=== PATIENT | female | born 1965 | race African-American/Black ===

== ENCOUNTER 2016-04-12 17:09 | Emergency (ER) | payer BC, OTHER ==
[~2016-04-12] VITALS: Ht 175.3 cm; Wt 113.4 kg
[~2016-04-12 17:09] MED LIST: CALCIUM 500 +1 EAC5 PO; FIRST-PROGESTE100 MG VG; ZOFRAN ODT4 MG PO; [UNRECOGNIZED DRUG - OTHER]
[2016-04-12] MEDS ORDERED: TESSALON PERLE100 MG PO (18:38)
[2016-04-12] MEDS ORDERED: VENTOLIN HFA 1818 GM INH (18:38)
[2016-04-12] MEDS ORDERED: AZITHROMYCIN 2250 MG PO (18:38)
[2016-04-12] MEDS ORDERED: PREDNISONE 20 M20 MG PO (18:38)
[2016-04-12 20:45] VITALS: BP 144/68
== END 2016-04-12 20:50 | disposition home or self-care (01) ==
LOC: ER 17:09
DX: J18.9 Pneumonia, unspecified organism (principal); I10 Essential (primary) hypertension; E11.8 Type 2 diabetes mellitus with unspecified complications; Z79.4 Long term (current) use of insulin; Z98.890 Other specified postprocedural states; Z90.49 Acquired absence of other specified parts of digestive tract; Z98.84 Bariatric surgery status

== ENCOUNTER → 2016-04-19 | Outpatient (CLI) | payer BC, OTHER ==
[~2016-04-19] MED LIST changes: +AZITHROMYCIN 2250 MG PO; +PREDNISONE 20 M20 MG PO; +TESSALON PERLE100 MG PO; +VENTOLIN HFA 1818 GM INH
== END ==
LOC: RAD 09:15
DX: R09.89 Other specified symptoms and signs involving the circulatory and respiratory systems (principal); R05 Cough

== ENCOUNTER → 2016-09-09 | Outpatient (CLI) | payer BC, OTHER ==
[~2016-09-09] VITALS: Ht 172.7 cm; Wt 124.7 kg
[~2016-09-09] MED LIST changes: +BUTRANS1 EAC2 TD; +CELEBREX100 MG/1 C PO
--- NOTE | ~2016-09-09 | HPC ---
[facility] [place] [address] PAIN MANAGEMENT CONSULTATION Name: NAYANA BOWIE Room #: REG [facility] MEulalia.#: [id number] Admission: 09/09/16 Attend Phys: Neal Sanchez DO Discharge: Date of : 69 Report #: [id number] THIS REPORT FOR: //name// CC: Anita Sanchez SUBJECTIVBE: The patient is a 51-year-old female seen in consultation at the request of Anita Chicas (PATO) for assistance with management of acute and chronic pain concerns. The patient notes that she developed low back pain in 2010 without antecedent trauma and overuse. She had a series of epidural injections, billed in [facility], complicated with a post-dural puncture leak, did physical therapy, had another single epidural injection in 2014 at [facility]. She reports really no relief with those injections. Did see media promoter who diagnosed osteoarthritis in her knees. She has been treated with hydrocodone 10/325 "1-2 every 4-6 hours" for some time (this is off and on since 2011). The patient notes ongoing pain, it is an 8 or 9 on a 0-10 visual analog scale along with her chronic back pain. She states for the past year, she has had pain in her elbows and knees that has interfered with function as well. 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 The patient denies bowel or bladder continence changes. Denies specific weakness, though she notes that she does feel generally that her functional status is impacted by pain. She describes constant, throbbing, sharp, stabbing pain that she rates anywhere from 8-9 on a 0-10 visual analog scale, exacerbated with moving, only gets relief when she is "sedentary." REVIEW OF SYSTEMS: Complete review of systems was attached to the chart and gone over with the patient. SOCIAL HISTORY AND PAST MEDICAL HISTORY: She is , does not smoke, drink alcohol to excess. She has 2 children, 5-year-old son and 12-year-old daughter. Works as noted above. She has been off work up to 3 months. I believe this was in 2009, when she had gastric bypass surgery. She weighed up to 420 pounds. She has lost 150 pounds, weight is about 272 pounds presently. History of asthma for which she uses metered dose inhaler. Subsequent to the gastric bypass surgery, she has not required medications for diabetes or hypertension. Has had some colon issues and significant joint issues. Pain impact score is quite high, averaging 64 out 70. PHYSICAL EXAMINATION: VITAL SIGNS: She is a 5-foot 8-inch, 272-pound female, BMI is 41.8 kilograms per meter squared. Blood pressure is 128/84, pulse 70, respirations 16. NEUROLOGIC: Cranial nerves 2-12 are grossly intact. [address] [address] PAIN MANAGEMENT CONSULTATION Name: NAYANA BOWIE Room #: REG EZIO Mendes#: [id number] Admission: 09/09/16 Attend Phys: Neal Sanchez DO Discharge: Date of : 69 Report #: [id number] HEENT: Pupils are equal and reactive to light and accommodation. Extraocular muscles are intact. Thyroid is modestly enlarged. NECK: Cervical range of motion is full, though she notes flexion and extension exacerbate axial back pain. MUSCULOSKELETAL: Upper extremity strength is generally preserved, 4/5 deltoid, biceps, triceps strength. Hand grasp is symmetric though she notes the pain in her shoulders and elbows with range of motion. HEART: Regular rhythmical without murmur. LUNGS: Clear to auscultation. ABDOMEN: Endomorphic, gynecoid build. MUSCULOSKELETAL: Rises from chair using armrest. Gait is modestly antalgic though she can walk on her toes and heels individually, and lumbar flexion is good at 90 degrees. Has some diffuse tenderness in the low back, typically around the SI areas. Lower extremity strength is symmetric to all muscle groups tested. Hip flexion, lower extremity extension and flexion, dorsiflexion and plantar flexion 4/5. Patellar and Achilles reflexes are diminished, but symmetric, 0-1/4. Passive rotation of the hips exacerbates pain. She has significant decreased range of motion in general with poor flexibility. ERUM test is modestly positive on the right. Straight leg raise is negative. DIAGNOSTIC STUDIES: Reviewed including x-rays of the lumbar spine from 10/09/2015, noting mild scoliosis in the lumbar spine again. This is not significant, have to appreciate on physical exam or palpation. MRI of the lumbar spine from 10/30/2015, notes mild central protrusion at L3-L4. Chronic degenerative changes L4-L5 with loss of disk height and spondylosis, chronic degenerative changes L5-S1, posterior osteophyte spurring and disk bulging. Degenerative changes of the lumbar apophyseal joint, most marked at L5-S1. ASSESSMENT: Axial back pain, lumbar spondylosis, degenerative joint disease affecting multi-joints, osteoarthritis of the shoulders, elbows, hips and knees requiring complex medication management. RECOMMENDATION: Long discussion with the patient today about therapeutic options. We discussed at length concerns for chronic use of short-acting opiates for non-malignant chronic pain concerns. The patient is currently taking 40-60 mEq of morphine a day with pain that she still rates in general 8 range, that is interfering with her function. We did talk about using a long-acting opiate to avoid the "peaks and troughs" of short acting agents. To this in, we have elected to enter into an opiate [id number] contract. We will start the patient on Butrans patch, buprenorphine as she has problems with systemic absorption of agents, status post GI surgery. I also think given her significant osteoarthritic issues, a nonsteroidal anti-inflammatory medication will be efficacious. Status post bariatric surgery but the only anti-inflammatory typically indicated as a glynn-1 selective agent. We will start Celebrex 100 mg 1 a day. We will see the patient back in 4 weeks to evaluate [address] [address] PAIN MANAGEMENT CONSULTATION Name: NAYANA BOWIE MARIE Room #: REG Marichuy Chaudhari.#: [id number] Admission: 09/09/16 Attend Phys: Neal Sanchez DO Discharge: Date of : 69 Report #: [id number] efficacy of medication changes. We may need to titrate . Of note, the patient states she has been on Cymbalta up to 60 mg a day and gabapentin "for a long time" though the dose is uncertain; neither gave her much relief. Thank you for allowing me to participate in the patient's care. I stressed that we will try and find a combination of agents that will make her a little more functional, but in no way, shape, or form will we be able to make her "pain free." Strongly recommend to continue physical activity, range of motion, ongoing dietary discretion and weight reduction. I will keep you abreast of her progress. By: [id number] Neal Sanchez, DO /nt
[2016-09-09 13:18] VITALS: BP 128/84
== END ==
LOC: PAIN 06:55
DX: M54.5 Low back pain (principal); M47.816 Spondylosis without myelopathy or radiculopathy, lumbar region; M16.0 Bilateral primary osteoarthritis of hip; M17.0 Bilateral primary osteoarthritis of knee; M19.012 Primary osteoarthritis, left shoulder; M19.011 Primary osteoarthritis, right shoulder; M19.022 Primary osteoarthritis, left elbow; M19.021 Primary osteoarthritis, right elbow; J45.909 Unspecified asthma, uncomplicated; E11.9 Type 2 diabetes mellitus without complications; I10 Essential (primary) hypertension; K63.89 Other specified diseases of intestine; D64.89 Other specified anemias; F32.9 Major depressive disorder, single episode, unspecified; Z90.49 Acquired absence of other specified parts of digestive tract; Z98.84 Bariatric surgery status

== ENCOUNTER → 2016-10-03 | Outpatient (CLI) | payer BC, OTHER ==
[~2016-10-03] VITALS: Ht 172.7 cm; Wt 128.6 kg
[~2016-10-03] MED LIST changes: +FENTANYL PA12 MCG/HR TD
[2016-10-03 15:03] VITALS: BP 155/70
== END | disposition home or self-care (01) ==
LOC: PAIN 06:54
DX: M17.0 Bilateral primary osteoarthritis of knee (principal); M19.042 Primary osteoarthritis, left hand; M19.041 Primary osteoarthritis, right hand; M41.86 Other forms of scoliosis, lumbar region; E66.01 Morbid (severe) obesity due to excess calories; Z68.41 Body mass index [BMI] 40.0-44.9, adult; Z98.84 Bariatric surgery status; M47.896 Other spondylosis, lumbar region

== ENCOUNTER → 2016-10-17 | Outpatient (CLI) | payer BC, OTHER ==
[~2016-10-17] VITALS: Ht 172.7 cm; Wt 124.4 kg
--- NOTE | ~2016-10-17 | HPC ---
[facility] [place] [address] [place] [address] PAIN MANAGEMENT CONSULTATION Name: NAYANA BOWIE Room #: REG [facility] Cinthya#: [id number] Admission: 10/17/16 Attend Phys: Neal Sanchez DO Discharge: Date of : 67 Report #: [id number] THIS REPORT FOR: //name// CC: Anita Sanchez HISTORY OF PRESENT ILLNESS: The patient is a 51-year-old female. She was prior seen in the pain clinic on 10/03/2016. She is being seen for high risk complex medication management, DJD affecting bilateral knees and hands, lumbar scoliosis and spondylosis, degenerative changes in the lumbar spine. She is morbidly obese with a BMI of greater than 43 kilograms per meter squared. She is status post bypass surgery in 2009 (prior weight was 420 pounds). Last visit, we discontinued Butrans due to topical rash. I trialed fentanyl at 12 mcg. The patient returns to pain clinic today. She notes that the Duragesic is helpful, she has less sedation than with the Butrans. Skin is not getting irritated either like it was with the Butrans either. She still notes pain is 9/10. Still complaining of some swelling despite our discontinuation of Celebrex. PHYSICAL EXAMINATION: Shows 51-year-old female. Vital signs are generally stable. BMI is 41.7. She rises from chair using armrest. She has diffuse tenderness in the back, arms and legs, but no discrete trigger points are noted. She does not use tobacco products. We reviewed the fact that opiate medications are being used to provide analgesia adequate to support activities of daily living, not attempting to achieve a specific pain score on the 0-10 Visual Analog Scale. The current opiate medications are providing sufficient analgesia to allow the patient to participate in activities of daily living. The patient is not exhibiting any aberrant behavior suggestive of drug diversion. The patient is not having any adverse reactions to medications. The patient is not suffering from daytime somnolence or mental acuity changes. The patient is managing opiate-induced constipation with appropriate pola-cnk-bwpkjvu agents and dietary considerations. The patient was counseled on concern for caution with operating a motor vehicle while using opiate medications. A physical exam was performed and the patient's functional status was evaluated. All patients with back pain were advised against the bed rest greater than 4 days and were advised to return to normal activities. Pain score assessment was noted and the treatment plan was reviewed with the patient. All current medications, both prescribed and OTC were reviewed and reconciled on the electronic medical record. Tobacco screening was accomplished and smoking cessation was advised when indicated. BMI was noted and diet/exercise modification was recommended for all patients following outside normal parameters. I reviewed with the patient today their responsibilities to safeguard prescription medications, reviewed their responsibility to utilize medications [address] [address] PAIN MANAGEMENT CONSULTATION Name: NAYANA BOWIE MARIE Room #: REG [facility] Cinthya#: [id number] Admission: 10/17/16 Attend Phys: Neal Sanchez DO Discharge: Date of : 69 Report #: [id number] only as prescribed by the physician. They are to seek and receive pain medications only from 1 physician group ([facility]). They are to use 1 pharmacy and keep the clinic informed if they change pharmacies. Their responsibilities include making followup visits in a timely fashion and to avoid abrupt discontinuation of medication usage. Their responsibilities further include bringing their medications (bottles from the pharmacy with residual pills) to the visit for possible confirmation of pill counts and the patient understands it is their responsibility to submit to random drug screens to ensure both that the medications prescribed are present, and that no other controlled substances are present. All prescriptions provided today were generated electronically. ASSESSMENT: 1. Chronic pain syndrome, high risk complex medication management. 2. Degenerative joint disease affecting bilateral knees and hands. 3. Lumbar scoliosis and spondylosis. 4. Degenerative changes of the lumbar spine. 5. Morbid obesity. RECOMMENDATION: We will increase Duragesic to 25 mcg q. 72 hours, taking the liberty of writing for 30 days of current medications. We will reevaluate at that time. Hopefully, we can start back on Celebrex at that time as well. Discharged in good and stable condition. By: [id number] Neal Sanchez DO /nt
[2016-10-17 08:31] VITALS: BP 135/69
== END | disposition home or self-care (01) ==
LOC: PAIN 07:41
DX: M47.816 Spondylosis without myelopathy or radiculopathy, lumbar region (principal); M17.0 Bilateral primary osteoarthritis of knee; M19.042 Primary osteoarthritis, left hand; M19.041 Primary osteoarthritis, right hand; E66.01 Morbid (severe) obesity due to excess calories; Z68.41 Body mass index [BMI] 40.0-44.9, adult; G89.4 Chronic pain syndrome; M41.86 Other forms of scoliosis, lumbar region

== ENCOUNTER → 2016-11-04 | Outpatient (CLI) | payer BC, OTHER ==
[~2016-11-04] VITALS: Ht 172.7 cm; Wt 121.7 kg
[~2016-11-04] MED LIST changes: +DURAGESIC25 MCG/HR TP
--- NOTE | ~2016-11-04 | HPC ---
[facility] [place] [address] [address] [place] [address] PAIN MANAGEMENT CONSULTATION Name: JAMIRNAYANA SALAZAR Room #: REG Marichuy Mendes#: [id number] Admission: 11/04/16 Attend Phys: Neal Sanchez DO Discharge: Date of : 69 Report #: [id number] THIS REPORT FOR: //name// CC: Anita Sanchez The patient is a very pleasant 51-year-old female, prior seen in the pain clinic on 10/17/2016. The patient has ongoing pain concerns, DJD affecting bilateral knees and hands, lumbar scoliosis and spondylosis, DJD of lumbar spine. She is morbidly obese with a BMI of 43 kilograms per meter squared. She is status post bariatric surgery in 2009 (prior weight was 420 pounds). Initially, we had trialed the Butrans patch, but this caused topical rash. We trialed a fentanyl patch at 12 mcg with only nominal efficacy. It did afford less sedation and less pruritus than the Butrans patch. Last visit on 10/17/2016 increased that patch to 25 mcg. She has now utilized that for good 2 weeks. She returns to the pain clinic today for evaluation. On discussion with the patient today, she notes while pain is reasonably well controlled, noting pain is 4 on VAS, constant aching sensation, exacerbated with movement, primarily in the bilateral shoulders, elbow, neck, low back and knees, she feels the last day or two, she has had some cognitive impairment secondary to what she believes is the Duragesic patch. Again, it is curious she used a 12 mcg patch for 2 weeks with no efficacy. This is now about 2 weeks on the 25 mcg patch in the last 24-36 hours, she has felt a little bit "off balance." Feeling "crazy in the head." The patient had some nausea and swelling. PHYSICAL EXAMINATION: Relatively unchanged. A 51-year-old female, BMI is 40.8 kg/m2. Vital signs are stable. Cranial nerves 2-12 are grossly intact. Extraocular muscles are intact. I detect no nystagmus or lateral gaze deviation. Balance is good. Gait is tandem, though mildly antalgic gait. Discussion with the patient today about therapeutic options. While I have not seen this clinically, she may be exhibiting a side effect from the fentanyl, while it is a drug with rapid onset and rapid onset of clinical effect, the drug itself is actually fairly long in its metabolic half life. It clinically is rapidly uptaken by fat deposits outside the general circulation. I am curious if perhaps she simply has reached saturation of uptake of the extra ____ sites, maybe exhibiting some relative overdose at this point. Assuming this may be the reason for the effect we are seeing, we have elected to drop back to 12 mcg of Duragesic patch for 5 cycle, i.e., 15 days. If this keeps the patient relatively more oriented, lucid and while still affording some efficacy from analgesia, I have taken the liberty of writing for a second prescription to be released in 2 weeks for 12 mcg of Duragesic patches. If, however, she finds that rotating back to 12 mcg patch has loss of efficacy from analgesia, I will have her go back to 25 mcg patch in 2 weeks. We will somewhat "rechallenge" and see if she does better. This may simply be a concurrent viral "bug." [facility] [address] [place] [address] PAIN MANAGEMENT CONSULTATION Name: NAYANA BOWIE #: REG EZIO Mendes#: [id number] Admission: 11/04/16 Attend Phys: Neal Sanchez DO Discharge: Date of : 69 Report #: [id number] The patient was discharged in good and stable condition today. Again, prescription for 12 mcg of Duragesic patch for 5 cycle and then we will either go to 12 mcg or 25 mcg for the subsequent 4 weeks. I am happy to see her any time in the next 6 weeks if she has any untoward symptoms, otherwise we will see her back in 6 weeks for reevaluation. Discharged in good and stable condition. By: [id number] Neal Sanchez DO /nt
[2016-11-04 10:24] VITALS: BP 132/61
== END ==
LOC: PAIN 07:16
DX: M17.0 Bilateral primary osteoarthritis of knee (principal); M19.042 Primary osteoarthritis, left hand; M19.041 Primary osteoarthritis, right hand; M47.896 Other spondylosis, lumbar region

== ENCOUNTER → 2017-01-02 | Outpatient (CLI) | payer BC, OTHER ==
[~2017-01-02] VITALS: Ht 172.7 cm; Wt 115.8 kg
[~2017-01-02] MED LIST changes: +HYSINGLA ER20 MG PO
--- NOTE | ~2017-01-02 | HPC ---
[facility] [place] [address] PAIN MANAGEMENT CONSULTATION Name: NAYANA BOWIE Room #: REG [facility] ParrishKhurram#: [id number] Admission: 01/02/17 Attend Phys: Neal Sanchez DO Discharge: Date of : 69 Report #: [id number] THIS REPORT FOR: //name// CC: Anita Sanchez HISTORY OF PRESENT ILLNESS: The patient is a very pleasant 51-year-old female, prior seen in the pain clinic on 11/04/2016. The patient has significant DJD affecting her hands and feet, has lumbar scoliosis and spondylosis. She has chronic pain concerns. She has taken high dose hydrocodone for many years, is off medication since about 2011. She was seen by me in consultation on August 2016. We elected to start the patient on a long acting opiate, Butrans worked well, but caused skin reaction. We rotated to fentanyl, which caused some cognitive impairment. She returns to pain clinic today. She has been out the fentanyl for about 3 days. She notes pain remains problematic. She rates her pain 8 on a VAS. Complains of pain primarily in her shoulders, elbows, neck, low back, knees and hands. PHYSICAL EXAMINATION: Unchanged, pleasant 51-year-old female, moderately obese with a BMI of 38.8 kilograms per meter squared. Vital signs are stable. Rises from chair using armrest. Gait is nominally antalgic. She has tenderness about the knees, though no ballotable edema is appreciable. Tenderness in her ankles, hands, elbows and shoulders with range of motion. Strength is adequate. ASSESSMENT: Chronic pain syndrome requiring high risk complex medication management. Primary pain generator is arthritis affecting hands, feet, elbows and back. The patient has been diagnosed with osteoarthritis. RECOMMENDATION: Long discussion with the patient today about therapeutic options. Ultimately, we have elected to continue with a long-acting opiate, we will trial Hysingla 20 mg 1 a day. I have taken the liberty of writing for 30 tablets. We will follow up in 1 month for reevaluation. We may need to titrate this up slightly at next visit. I stressed with the patient that we will not make her "pain-free," but we are trying to find a dose that will help enable her to be little more functional. The patient was discharged in good and stable condition. Follow up in 4 weeks for reevaluation. We reviewed the fact that opiate medications are being used to provide analgesia adequate to support activities of daily living, not attempting to achieve a specific pain score on the 0-10 Visual Analog Scale. The current opiate medications are providing sufficient analgesia to allow the patient to participate in activities of daily living. The patient is not exhibiting any aberrant behavior suggestive of drug diversion. The patient is not having any [address] [address] PAIN MANAGEMENT CONSULTATION Name: NAYANA BOWIE Room #: REG EZIO Mendes#: [id number] Admission: 01/02/17 Attend Phys: Neal Sanchez DO Discharge: Date of : 69 Report #: [id number] adverse reactions to medications. The patient is not suffering from daytime somnolence or mental acuity changes. The patient is managing opiate-induced constipation with appropriate uutm-kld-kdgmfqj agents and dietary considerations. The patient was counseled on concern for caution with operating a motor vehicle while using opiate medications. A physical exam was performed and the patient's functional status was evaluated. All patients with back pain were advised against the bed rest greater than 4 days and were advised to return to normal activities. Pain score assessment was noted and the treatment plan was reviewed with the patient. All current medications, both prescribed and OTC were reviewed and reconciled on the electronic medical record. Tobacco screening was accomplished and smoking cessation was advised when indicated. BMI was noted and diet/exercise modification was recommended for all patients following outside normal parameters. I reviewed with the patient today their responsibilities to safeguard prescription medications, reviewed their responsibility to utilize medications only as prescribed by the physician. They are to seek and receive pain medications only from 1 physician group ( [facility]). They are to use 1 pharmacy and keep the clinic informed if they change pharmacies. Their responsibilities include making followup visits in a timely fashion and to avoid abrupt discontinuation of medication usage. Their responsibilities further include bringing their medications (bottles from the pharmacy with residual pills) to the visit for possible confirmation of pill counts and the patient understands it is their responsibility to submit to random drug screens to ensure both that the medications prescribed are present, and that no other controlled substances are present. All prescriptions provided today were generated electronically. <ELECTRONICALLY SIGNED> By: Neal Sanchez DO 01/02/17 1527 [id number] Neal Sanchez DO /nt
[2017-01-02 10:46] VITALS: BP 122/69
== END | disposition home or self-care (01) ==
LOC: PAIN 07:05
DX: Z76.0 Encounter for issue of repeat prescription (principal); G89.4 Chronic pain syndrome; M19.90 Unspecified osteoarthritis, unspecified site; E66.01 Morbid (severe) obesity due to excess calories; Z79.891 Long term (current) use of opiate analgesic; Z68.38 Body mass index [BMI] 38.0-38.9, adult

== ENCOUNTER → 2017-03-10 | Outpatient (CLI) | payer BC, OTHER ==
[~2017-03-10] VITALS: Ht 172.7 cm; Wt 112.4 kg
[~2017-03-10] MED LIST changes: +HYSINGLA ER30 MG PO; +IBUPROFEN 200200 M1 PO; +MORPHABOND ER15 MG PO; +ZANAFLEX4 MG PO
--- NOTE | ~2017-03-10 | HPC ---
[facility] [place] [address] PAIN MANAGEMENT CONSULTATION Name: NAYANA BOWIE Room #: [facility] [id number] Admission: 03/10/17 Attend Phys: Neal Sanchez DO Discharge: Date of : 69 Report #: [id number] THIS REPORT FOR: //name// CC: Anita Sanchez HISTORY OF PRESENT ILLNESS: The patient is a 51-year-old female being treated for symptomatic chronic pain syndrome, axial back pain, osteoarthritis affecting hands and knees, history of lumbar scoliosis and spondylosis, requiring high risk complex medication management. Last seen in the pain clinic on 02/07/2017. At that time, I had taken the patient off of short acting hydrocodone 10/325 one to two tablets hours q. 4 hours and we started Butrans, which causes skin irritation. We tried Duragesic, but even at low dose 12 mcg caused cognitive impairment. I started the patient on Hysingla 20 mg with end of dose failure, we increased to 30 mg with ongoing end of dose failure. Returns to pain clinic today complaining of multiple pain generators, hands, shoulders, back and knees. Rates her pain at 8 on a VAS. PHYSICAL EXAMINATION: Unchanged. Pleasant 51-year-old female, BMI 37.7 kilograms per meter squared. Vital signs stable as noted in the EMR. Rises from chair using armrest. Gait is tandem. Diffuse tenderness across the low back. Lower extremity strength is symmetric. ASSESSMENT: Osteoarthritis affecting hands and knees, axial back pain, chronic pain syndrome requiring high risk complex medication management, component of lumbar spondylosis, no focal defects noted. RECOMMENDATIONS: I had a long discussion with the patient today about therapeutic option. I pointed out that we will never achieve pain cessation, we are simply trying to diminish pain to keep the patient functional. Ultimately, we elected to rotate MorphaBond extended release 15 mg b.i.d. The patient was given a coupon from the MorphaBond paediatrician to keep copay reasonable. We will use no breakthrough agent, but continue tizanidine 4 mg p.r.n. Follow up in 30 days to evaluate efficacy of this intervention. I am loathe to increase her opiate load overall. <ELECTRONICALLY SIGNED> By: Neal Sanchez DO 03/12/17 0808 [id number] Neal Sanchez DO /nt
[2017-03-10 12:37] VITALS: BP 143/71
== END ==
LOC: PAIN 07:12
DX: M17.0 Bilateral primary osteoarthritis of knee (principal); M19.042 Primary osteoarthritis, left hand; M19.041 Primary osteoarthritis, right hand; M47.896 Other spondylosis, lumbar region; G89.4 Chronic pain syndrome; Z79.899 Other long term (current) drug therapy

== ENCOUNTER → 2017-03-31 | Outpatient (CLI) | payer OTHER ==
[~2017-03-31] VITALS: Ht 167.6 cm; Wt 114.8 kg
[~2017-03-31] MED LIST changes: +MOBIC7.5 MG PO; +NORCO 10-325 T1 EAC1 PO; +NORCO 10-325 T1 EACH PO
--- NOTE | ~2017-03-31 | HPC ---
[facility] [place] [address] PAIN MANAGEMENT CONSULTATION Name: BOWIENAYANA Room #: REG EZIO Mendes#: [id number] Admission: 03/31/17 Attend Phys: Neal Sanchez DO Discharge: Date of : 69 Report #: [id number] THIS REPORT FOR: //name// CC: Anita Sanchez DATE OF SERVICE: 03/31/2017 HISTORY OF PRESENT ILLNESS: The patient is a 52-year-old female being treated for osteoarthritis affecting knees and hands, component of axial back pain, high risk complex medication management for chronic pain syndrome. Last seen in pain clinic 03/10/2017. The patient came to me, taking hydrocodone 10/325 one tablet every 4 hours, high dose opiates with dwindling efficacy. She rotated to Butrans patch which caused skin irritation, rotated to Duragesic which caused cognitive dysfunction, Hysingla both 20 and 30 mg extended release had end of dose failure. Last visit, we tried Morphabond 15 mg b.i.d. The patient claims that this caused GI distress. Returns to pain clinic today. Having ongoing pain. She rates an 8.5 on a VAS, pain in shoulders and elbows and neck. She has followed up with Rheumatology. They noted that she has osteoarthritis and really no therapeutic disease modifying agents were appropriate. The patient has had a gastric bypass surgery; hence, anti-inflammatory medications can be a little problematic, though meloxicam 7.5 b.i.d. should be okay. She does take a rare tkbh-pho-kznenuc ibuprofen. We suggest we try the more Cespedes selective analgesic as noted above. PHYSICAL EXAMINATION: Otherwise shows a 52-year-old female, BMI is 40.9 kilograms per meter squared. Blood pressure is modestly elevated at 131/62, pulse 66, respirations 16. Alert and oriented to person, place and time, judged to be a reasonable historian. Rises from chair using the armrest. Gait is modestly antalgic. Subjective pain in all of her joints, but overall strength is adequate. We reviewed the fact that opiate medications are being used to provide analgesia adequate to support activities of daily living, not attempting to achieve a specific pain score on the 0-10 Visual Analog Scale. The current opiate medications are providing sufficient analgesia to allow the patient to participate in activities of daily living. The patient is not exhibiting any aberrant behavior suggestive of drug diversion. The patient is not having any adverse reactions to medications. The patient is not suffering from daytime somnolence or mental acuity changes. The patient is managing opiate-induced constipation with appropriate cqxs-nzw-yacrdnz agents and dietary considerations. The patient was counseled on concern for caution with operating a motor vehicle while using opiate medications. [address] [address] PAIN MANAGEMENT CONSULTATION Name: NAYANA BOWIE Room #: REG CLI Cinthya#: [id number] Admission: 03/31/17 Attend Phys: Neal Sanchez DO Discharge: Date of : 69 Report #: [id number] A physical exam was performed and the patient's functional status was evaluated. All patients with back pain were advised against the bed rest greater than 4 days and were advised to return to normal activities. Pain score assessment was noted and the treatment plan was reviewed with the patient. All current medications, both prescribed and OTC were reviewed and reconciled on the electronic medical record. Tobacco screening was accomplished and smoking cessation was advised when indicated. BMI was noted and diet/exercise modification was recommended for all patients following outside normal parameters. I reviewed with the patient today their responsibilities to safeguard prescription medications, reviewed their responsibility to utilize medications only as prescribed by the physician. They are to seek and receive pain medications only from 1 physician group ( [facility]). They are to use 1 pharmacy and keep the clinic informed if they change pharmacies. Their responsibilities include making followup visits in a timely fashion and to avoid abrupt discontinuation of medication usage. Their responsibilities further include bringing their medications (bottles from the pharmacy with residual pills) to the visit for possible confirmation of pill counts and the patient understands it is their responsibility to submit to random drug screens to ensure both that the medications prescribed are present, and that no other controlled substances are present. All prescriptions provided today were generated electronically. ASSESSMENT: Osteoarthritis affecting hands and knees, axial back pain, chronic pain syndrome requiring high risk complex medication management. The patient has failed multiple opiate analgesics. RECOMMENDATIONS: I had a long discussion with the patient today about therapeutic options. The patient was seen from approximately 10:38-11:05, greater than 50% of the 25-minute visit was spent counseling the patient. Ultimately, I pointed out that the patient has failed long acting opiates. I pointed out that it is unsustainable to continue short-acting opiates for chronic arthritic pain. Again, recommend the aforementioned meloxicam 7.5 b.i.d. I have taken the liberty of writing for short course of hydrocodone 10/325, limit 45 tablets. I told the patient she can take 1 or 2 a day on a nondaily basis. We would like to see her back in about 4 weeks for a pill count and we will evaluate efficacy and try and find the lowest effective dose to keep the patient functional while stressing that we are not trying to achieve "pain score of 0," simply to keep the patient functional. Discharged in a stable [address] [place] [address] PAIN MANAGEMENT CONSULTATION Name: NAYANA BOWIE Room #: REG EZIO Mendes#: [id number] Admission: 03/31/17 Attend Phys: Neal Sanchez DO Discharge: Date of : 69 Report #: [id number] condition after moderately prolonged visit, 25 plus minute visit was spent counseling the patient. <ELECTRONICALLY SIGNED> By: Neal Sanchez DO 04/02/17 0721 1213 15 Neal Sanchez DO /nt
[2017-03-31 10:35] VITALS: BP 131/62
== END ==
LOC: PAIN 06:52
DX: G89.4 Chronic pain syndrome (principal); M54.9 Dorsalgia, unspecified; M17.0 Bilateral primary osteoarthritis of knee; M19.042 Primary osteoarthritis, left hand; M19.041 Primary osteoarthritis, right hand; Z79.899 Other long term (current) drug therapy

== ENCOUNTER → 2017-08-14 | Outpatient (CLI) | payer OTHER ==
[~2017-08-14] VITALS: Ht 172.7 cm; Wt 118.9 kg
[~2017-08-14] MED LIST changes: -NORCO 10-325 T1 EAC1 PO
--- NOTE | ~2017-08-14 | HPC ---
[facility] [address] [place] [address] PAIN MANAGEMENT CONSULTATION Name: BOWIENAYANA Room #: REG EZIO Mendes#: [id number] Admission: 08/14/17 Attend Phys: Neal Sanchez DO Discharge: Date of : 69 Report #: [id number] THIS REPORT FOR: //name// CC: Anita Sanchez The patient is a very pleasant 52-year-old female, seen for osteoarthritis affecting hands and knees, axial back pain requiring complex medication management. She is actually last seen back in March (03/31/2017). She came to us with ongoing chronic pain requiring complex medication management. She had escalated to taking hydrocodone 10 mg multiple times a day. We had a long discussion about appropriate use of therapeutic agents. Concerned for opiate tolerance and habituation. Ultimately, we tried rotating to long acting opiates, Butrans patch unfortunately caused cutaneous irritation, Hysingla at both 20 and 30 mg doses had end of dose failure. Morphabond 15 mg b.i.d. caused GI distress. At last visit, we ultimately elected to continue hydrocodone 10/325 on a nondaily basis, the patient was given 45 tablets, which has lasted her now nearly 4+ months. She is on appropriate nondaily basis. She is status post gastric bypass surgery in 2009. Suggested she use Meloxicam 7.5 0-2 a day for inflammation component. He returns to pain clinic today. She notes she is getting some gastric distress, though it turns out she is using the Meloxicam, perhaps 1 tablet every other day, but is using ibuprofen 200 mg 1-2 tablets a day up to 6 days a week. I suggested this may be the more likely culprit for her gastroesophageal reflux concerns (than the meloxicam). She does note primary pain in her elbows, right greater than left and low back, right greater than left. PHYSICAL EXAMINATION: Shows a pleasant 52-year-old female, BMI remains elevated at 39.9 kilograms per meter squared. Blood pressure shows modest systolic hypertension at 149/72, pulse 78, respirations 16. She is alert and oriented to person, place and time, judged to be a reasonable historian. Rises from chair using armrest. Gait is tandem. Has some diffuse tenderness in the right low back about the L4-L5 area. Pain is exacerbated with right rotation more so than left. She has tenderness in the right elbow with full extension, though really does not show any tenderness over the medial or lateral epicondyle. Hand grasp is symmetric. I cannot reproduce right elbow pain with palpation, appears to be more "deep" in the elbow joint proper. ASSESSMENT: Osteoarthritis affecting hands and knees, axial back pain requiring complex medication management. RECOMMENDATIONS: Discussed with the patient today about therapeutic option. We suggest some range of motion exercises, yoga and/or magalis chi. I will renew [address] [address] PAIN MANAGEMENT CONSULTATION Name: NAYANA BOWIE Room #: REG EZIO Mendes#: [id number] Admission: 08/14/17 Attend Phys: Neal Sanchez DO Discharge: Date of : 69 Report #: [id number] hydrocodone 10, limit 60 tablets to be used on a nondaily basis. Meloxicam 7.5 mg up to b.i.d. Follow up on a p.r.n. basis. <ELECTRONICALLY SIGNED> By: Neal Sanchez DO 08/15/17 0656 0836 1002 Neal Sanchez DO /nt
[2017-08-14 08:11] VITALS: BP 149/72
== END ==
LOC: PAIN 07:00 → RAD 07:00 → PAIN 09:31
DX: Z12.31 Encounter for screening mammogram for malignant neoplasm of breast (principal); M17.0 Bilateral primary osteoarthritis of knee; M19.042 Primary osteoarthritis, left hand; M19.041 Primary osteoarthritis, right hand; Z79.899 Other long term (current) drug therapy

== ENCOUNTER → 2017-09-15 | Outpatient (CLI) | payer OTHER ==
[~2017-09-15] VITALS: Ht 172.7 cm; Wt 115.7 kg
[~2017-09-15] MED LIST changes: +NORCO 10-325 T1 EAC1 PO
--- NOTE | ~2017-09-15 | HPC ---
[facility] [address] [address] PAIN MANAGEMENT CONSULTATION Name: JAMIRNAYANA SALAZAR Room #: REG EZIO Mendes#: [id number] Admission: 09/15/17 Attend Phys: Neal Sanchez DO Discharge: Date of : 69 Report #: [id number] THIS REPORT FOR: //name// CC: Anita Sanchez The patient is a 52-year-old female originally seen in consultation about a year ago, 09/09/2016. She has ongoing acute and chronic back pain. She had prior had epidural injections complicated with a dural puncture leak. These were done at [facility]. She had no long going relief with the axial and radicular component of pain. She does have osteoarthritis affecting her knees. She had been on hydrocodone 10/325 one to two tablets q. 4-6 hours for quite some time, though she had been off since about 2011. She was taking p.r.n. hydrocodone when I saw her. She is . She does not smoke. She does not drink alcohol to excess. She has 2 children, a 6-year-old son and a 13-year-old daughter. She had gastric bypass surgery, had weight up to 420 pounds, current weight is 255. Since the bypass surgery, she has not required medications for diabetes or hypertension. She has been stable on baseline medication, we had trialled and failed multiple agents including Butrans, which caused cutaneous irritation; Hysingla, both at 20 and 30 mg doses had end of dose failure; Morphabond 15 mg b.i.d. caused GI distress. Ultimately hydrocodone 10/325, limiting 45-50 tablets for 60 days has been helpful. She does do well with meloxicam 7.5 b.i.d. This has not been a problem with her gastric bypass surgery. The patient returns to pain clinic today and notes subjective pain score is 8 on a VAS. BMI is 38.8 kilograms per meter squared (5 feet 8 inches, 255 pounds). Blood pressure shows modest hypertension 139/85, pulse 60, respirations are 14. She is alert and oriented to person, place and time, judged to be a reasonable historian. She has not fallen since her last visit. Rises from chair using armrest. Gait is tandem. Complains of axial low back pain, though no radicular component, some knee pain due to osteoarthritis. Opiate consent to treat contract was signed on 09/09/2016. Opiate risk assessment score is low , functional impact however, is fairly high of 56/70. We reviewed the fact that opiate medications are being used to provide analgesia adequate to support activities of daily living, not attempting to achieve a specific pain score on the 0-10 Visual Analog Scale. The current opiate medications are providing sufficient analgesia to allow the patient to participate in activities of daily living. The patient is not exhibiting any aberrant behavior suggestive of drug diversion. The patient is not having any adverse reactions to medications. The patient is not suffering from daytime somnolence or mental acuity changes. The patient is managing opiate-induced constipation with appropriate kkhg-vqi-ibsncgw agents and dietary [address] [address] PAIN MANAGEMENT CONSULTATION Name: NAYANA BOWIE Room #: REG Marichuy Mendes#: [id number] Admission: 09/15/17 Attend Phys: Neal Sanchez DO Discharge: Date of : 69 Report #: [id number] considerations. The patient was counseled on concern for caution with operating a motor vehicle while using opiate medications. A physical exam was performed and the patient's functional status was evaluated. All patients with back pain were advised against the bed rest greater than 4 days and were advised to return to normal activities. Pain score assessment was noted and the treatment plan was reviewed with the patient. All current medications, both prescribed and OTC were reviewed and reconciled on the electronic medical record. Tobacco screening was accomplished and smoking cessation was advised when indicated. BMI was noted and diet/exercise modification was recommended for all patients following outside normal parameters. I reviewed with the patient today their responsibilities to safeguard prescription medications, reviewed their responsibility to utilize medications only as prescribed by the physician. They are to seek and receive pain medications only from 1 physician group ( [facility]). They are to use 1 pharmacy and keep the clinic informed if they change pharmacies. Their responsibilities include making followup visits in a timely fashion and to avoid abrupt discontinuation of medication usage. Their responsibilities further include bringing their medications (bottles from the pharmacy with residual pills) to the visit for possible confirmation of pill counts and the patient understands it is their responsibility to submit to random drug screens to ensure both that the medications prescribed are present, and that no other controlled substances are present. All prescriptions provided today were generated electronically. ASSESSMENT: Chronic axial back pain and osteoarthritis affecting hands, knees and elbows, requiring complex medication management. RECOMMENDATIONS: We will renew hydrocodone 10/325 one tablet b.i.d., limit 50 tablets. I have taken the liberty of writing for 2 prescriptions, one release today and one release in 4 weeks. We will add tizanidine 4 mg half to one tablet 3 times a day, dispense 75 tablets, 1 refill as needed for spasm, 7.5 b.i.d. I have taken the liberty of writing for 90-day prescription of the latter medication. The patient was discharged in good and stable condition. We will have her follow up with one of my [facility]. She is on an exquisitely low dose of opiate, taking not more than 20 mg equivalent morphine a day, typically little bit less than this. I did incidentally note that it has been about a year that she has been seen in the clinic. There is no random drug screen on the chart. We may consider getting a buccal swab at next visit. Certainly, no aberrant behavior [address] [address] PAIN MANAGEMENT CONSULTATION Name: JAMIRNAYANAE Room #: REG [facility] Cinthya#: [id number] Admission: 09/15/17 Attend Phys: Neal Sanchez DO Discharge: Date of : 69 Report #: [id number] suggestive of drug diversion, simply complying with her opiate consent to treat contract. <ELECTRONICALLY SIGNED> By: Neal Sanchez DO 09/15/17 1346 0931 1127 Neal Sanchez DO /nt
[2017-09-15 08:33] VITALS: BP 139/85
== END ==
LOC: PAIN 06:35
DX: M19.042 Primary osteoarthritis, left hand (principal); M19.041 Primary osteoarthritis, right hand; M54.5 Low back pain; M17.0 Bilateral primary osteoarthritis of knee; M19.122 Post-traumatic osteoarthritis, left elbow; M19.121 Post-traumatic osteoarthritis, right elbow; Z79.899 Other long term (current) drug therapy

== ENCOUNTER → 2017-11-12 | Outpatient (CLI) | payer OTHER ==
[~2017-11-12] VITALS: Ht 172.7 cm; Wt 115.7 kg
--- NOTE | ~2017-11-12 | HPC ---
[facility] [place] [address] [place] [address] PAIN MANAGEMENT CONSULTATION Name: NAYANA BOWIE Room #: REG JASMYNMarichuy Mendes#: [id number] Admission: 11/12/17 Attend Phys: Sabi Hernández MD Discharge: Date of : 69 Report #: [id number] THIS REPORT FOR: //name// CC: Anita Hernández DATE OF SERVICE: 11/12/2017 FOLLOWUP HISTORY: The patient is a 52-year-old female who has been followed in the Pain Clinic because of chronic pain. She has osteoarthritis, which is affecting her hands and knees. She also has axial back pain requiring complex medication regimen. She has been treated with a complex medical management course of opioids and nonsteroidal medications. The patient finds that her medications are helpful. She remains gainfully employed. As you may recall, she is status post gastric bypass surgery in 2009. Because of her surgery, possibility of a nonsteroidal anti-inflammatory medication has been discussed and the patient will monitor her GI complaints. The patient also has a history of gastroesophageal reflux. ALLERGIES: No known drug allergies. CURRENT MEDICATIONS: Tizanidine 4 mg t.i.d., hydrocodone 10/325 one p.o. b.i.d., meloxicam 7.5 mg b.i.d., history of ibuprofen 200 mg 2 to 3 tablets daily p.r.n. PAST MEDICAL HISTORY: Diabetes, anemia, asthma, hypertension, gallbladder disease, colon problems, joint disease. PAST SURGICAL HISTORY: Tonsillectomy in 1998, ablation in 2014, gastric bypass 420 pounds in 2009, gallbladder, cholecystectomy in 2009, hernia repair in 2010. 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 She is working at this juncture. REVIEW OF SYSTEMS: Fatigue, weakness, headaches, asthma, recurrent headaches, itching, depression, noninsulin dependent diabetes mellitus. LABORATORY DATA: No new laboratory values are available at this time, but L-spine views for dated 10/09/2015 reveals scoliotic curvature of the left. Lumbar vertebrae appear intact and normal alignment. No evidence of fracture or dislocation present. L4-L5 and L5-S1 space height is reduced with endplate irregularity and sclerosis. Degenerative changes of apophyseal joints are present throughout the lumbar spine. PAIN CLINIC ASSESSMENT: 1. History of osteoarthritis: The patient has some generalized problems with [facility] [address] [place] [address] PAIN MANAGEMENT CONSULTATION Name: NAYANA OBWIE MARIE Room #: REG [facility] Cinthya#: [id number] Admission: 11/12/17 Attend Phys: Sabi Hernández MD Discharge: Date of : 69 Report #: [id number] her back as well as with her elbows. 2. The patient states she has not been treated for rheumatoid arthritis. 3. Height 5 feet 8 inches, weight 255 pounds, BMI is 38.8. 4. Vital Signs: Blood pressure 139/85, pulse 62, respiratory rate 14, room air saturation 98%. 5. Pain intensity 10/31. 6. Fall risk. The patient has not fallen. 7. Blood thinner. The patient is not on her blood thinning medication. 8. History of hypertension. The patient is not being treated at this juncture for hypertension. 9. Opioid therapy. The patient is taking her medication as prescribed and gets it from one source, the pain clinic. 10. Risk assessment tool 0/3 for use of opioid medication. 11. Functional assessment 56/70. 12. Recreational drug use. The patient denies use of recreational drugs. 13. Tobacco: The patient has never smoked. 14. Alcohol. The patient rarely drinks alcoholic beverages. PHYSICAL EXAMINATION: GENERAL: The patient is a well-developed, well-nourished black female. Appears her stated age. She is somewhat obese. HEENT: Normocephalic, atraumatic. Extraocular eye muscles intact. Sclerae nonicteric. Mucous membranes are moist. NECK: Without adenopathy or JVD. The patient without bruits. CHEST: Clear to auscultation without rhonchi or rales. HEART: Regular rate. S1, S2. ABDOMEN: Protuberant. MUSCULOSKELETAL: Upper extremity muscle strength is judged to be 5/5 in the major muscle groups. The patient has some soreness in her elbows bilaterally. MUSCULOSKELETAL: Without significant scoliosis, kyphosis or lordosis. The patient has pain and discomfort, which radiates down the lower portion of her back. Muscle strength is judged to be 5/5 for the major muscle groups. IMPRESSION: 1. Past history of diabetes. 2. Asthma. 3. Past history of hypertension. 4. History of colon problems. 5. History of osteoarthritic joint disease. 6. Osteoarthritis affecting both hands, knees. 7. Axial back pain requiring complex medical regimen. RECOMMENDATIONS: We discussed treatment options with the patient. We will continue with her current medical regimen of hydrocodone, tizanidine and the patient will monitor use of her nonsteroidal anti-inflammatory medication, meloxicam. A script for these medications has been rewritten. The patient will [address] [address] PAIN MANAGEMENT CONSULTATION Name: NAYANA BOWIE Room #: CHARLEEN Mendes#: [id number] Admission: 11/12/17 Attend Phys: Sabi Hernández MD Discharge: Date of : 69 Report #: [id number] follow up in the near future. We would like to thank you for letting us participate in her care. We hope she continues to improve. By: [id number] Sabi Hernández MD /lonnie
[2017-11-12 08:26] VITALS: BP 144/74
== END ==
LOC: PAIN 07:29
DX: M17.0 Bilateral primary osteoarthritis of knee (principal); M19.042 Primary osteoarthritis, left hand; M19.041 Primary osteoarthritis, right hand; E11.9 Type 2 diabetes mellitus without complications; I10 Essential (primary) hypertension; J45.909 Unspecified asthma, uncomplicated; M54.5 Low back pain; Z79.899 Other long term (current) drug therapy

== ENCOUNTER → 2018-01-07 | Outpatient (CLI) | payer OTHER ==
[~2018-01-07] VITALS: Ht 172.7 cm; Wt 112.5 kg
--- NOTE | ~2018-01-07 | HPC ---
[facility] [place] [address] PAIN MANAGEMENT CONSULTATION Name: NAYANA BOWIE Room #: REG EZIO Cinthya#: [id number] Admission: 01/07/18 Attend Phys: Sabi Hernández MD Discharge: Date of : 69 Report #: [id number] THIS REPORT FOR: //name// CC: Anita Hernández DATE OF SERVICE: 01/07/2018 FOLLOWUP HISTORY: The patient is a 52-year-old female who has been followed in the Pain Clinic. As you recall, she has a history of osteoarthritis, which affects her hands, knees, back, elbow and feet. She has been treated with complex medical regimen. This includes opioid medications. She finds that these medications continued to be helpful. She remains gainfully employed. As you recall, she is status post gastric bypass surgery in 2009. Because of the surgery, she is unable to take nonsteroidal anti-inflammatory medications. She also has a history of gastroesophageal reflux. She feels that her medications are helpful. She rates her pain as a 7/10. She has had no complications. She is able to think clearly with their use. She is aware that these medications can cause some problems, such as addiction as well as decreased pain relief secondary to tolerance. She would like to have her medications renewed. ALLERGIES: No known drug allergies. CURRENT MEDICATIONS: Tizanidine 4 mg t.i.d., hydrocodone 10/325s one p.o. b.i.d., meloxicam 7.5 mg b.i.d. History of ibuprofen use in the past. PAIN CLINIC ASSESSMENT/PQRS: 1. History of osteoarthritis involving the knees bilaterally, left and right, right foot, back, bilateral elbows which are most problematic. The patient is not being treated for rheumatoid arthritis. 2. Height 5 feet 8 inches, weight 248 pounds, BMI 37.7. 3. Vital signs: Blood pressure 127/68, pulse 67, respiratory rate 16, room air saturation is 100%. 4. Pain intensity: 7/10. 5. Fall risk: The patient has not fallen in the last 3 months. 6. Blood thinner: The patient is not on a blood thinning medication. 7. Hypertension: The patient is not being treated for hypertension. 8. Opioid therapy greater than 6 weeks: The patient receives her opioid medications from one source, the Pain Clinic. 9. Risk assessment tool: Low risk, 0/3 for opioid use. 10. Functional assessment tool: 56/70. 11. Recreational drug use: The patient denies use of recreational drugs. 12. Tobacco: The patient has never smoked. 13. Alcohol: The patient denies, other than rare use of alcoholic beverages. PHYSICAL EXAMINATION: [facility] [address] [place] [address] PAIN MANAGEMENT CONSULTATION Name: BOWIENAYANA DENISE [facility] #: [id number] Admission: 01/07/18 Attend Phys: Sabi Hernández MD Discharge: Date of : 69 Report #: [id number] GENERAL: The patient is a well-developed, well-nourished black female. She appears her stated age. She is alert and oriented x 3. Her affect is appropriate, slightly obese. HEENT: Normocephalic, atraumatic. Extraocular eye muscles intact. Sclerae nonicteric. Mucous membranes are moist. NECK: Without adenopathy or JVD. No bruits. CHEST: Clear to auscultation, without rhonchi or rales. HEART: Regular rate. S1, S2. ABDOMEN: Protuberant. Bowel sounds present. MUSCULOSKELETAL: Without problems in the major muscle groups. Upper extremity muscle strength is judged to be 5/5. The patient complains of some increase in soreness in her elbows bilaterally. Without scoliosis, kyphosis, or lordosis. The patient has some pain and discomfort in the lower portion of her back. She has pain and discomfort in her knees bilaterally. Strength judged to be 5/5 for the major muscle groups in the lower extremity. IMPRESSION: 1. Past history of diabetes. 2. Asthma. 3. History of hypertension. 4. History of colon problems. 5. Osteoarthritis involving numerous joints. 6. Axial back pain, requiring complex medical regimen. RECOMMENDATIONS: We discussed treatment options with the patient. Risks and benefits of the opioid medications were discussed. Possible complications of the procedure were reviewed. She is aware that 26469 people last year as a result of overdosing. The patient states she keeps her medications in a guarded area and feels that these medications enable her to remain gainfully employed. She is not having any confusion or problems with mentation. She would like to have her medications renewed. She will follow up in the future. We would like to thank you for letting us participate in her care. We hope she continues to improve. By: [id number] aSbi Hernández MD /lonnie
[2018-01-07 08:32] VITALS: BP 127/68
== END ==
LOC: PAIN 06:57
DX: M17.0 Bilateral primary osteoarthritis of knee (principal); M19.072 Primary osteoarthritis, left ankle and foot; M19.042 Primary osteoarthritis, left hand; M19.022 Primary osteoarthritis, left elbow; M19.021 Primary osteoarthritis, right elbow; M19.071 Primary osteoarthritis, right ankle and foot; M47.816 Spondylosis without myelopathy or radiculopathy, lumbar region; I10 Essential (primary) hypertension; J45.909 Unspecified asthma, uncomplicated; M19.041 Primary osteoarthritis, right hand; E11.9 Type 2 diabetes mellitus without complications; Z79.899 Other long term (current) drug therapy

== ENCOUNTER → 2018-03-18 | Outpatient (CLI) | payer OTHER ==
[~2018-03-18] VITALS: Ht 172.7 cm; Wt 111.3 kg
--- NOTE | ~2018-03-18 | HPC ---
[facility] [address] PAIN MANAGEMENT CONSULTATION Name: NAYANA BOWIE Room #: REG EZIO Cinthya#: [id number] Admission: 03/18/18 Attend Phys: Sabi Hernández MD Discharge: Date of : 69 Report #: [id number] THIS REPORT FOR: //name// CC: Anita Hernández DATE OF SERVICE: 03/18/2018 CHIEF COMPLAINT: Here for medication renewal. HISTORY: The patient is a 53-year-old female who has been followed in the pain clinic. She has a history of osteoarthritis, which affects her hands, knees, back, elbow and feet. She has been treated with complex medical regimen, which includes opioid medications. Finds that these medications continue to be helpful. She remains gainfully employed. She did have a gastric bypass surgery in 2009 because of the surgery, she is unable to take nonsteroidal anti-inflammatory medications to help mitigate her pain. Does also have a history of gastroesophageal reflux. Finds that her medications continue to be helpful. Rates her pain as a 7/10 at this juncture. She has returned to the pain clinic today for renewal of her medications. She has taken the medication as prescribed. She is aware that addiction and can occur as use of opioid medications. Overall, she would like to continue with her medications, so that she can remain gainfully employed and active. ALLERGIES: No known drug allergies. CURRENT MEDICATIONS: Tizanidine 4 mg t.i.d., hydrocodone 10/325 one p.o. b.i.d., Meloxicam 7.5 mg b.i.d., ibuprofen has been used in the past. PAIN CLINIC ASSESSMENT/PQRS: 1. The patient has osteoarthritis involving her knees bilaterally. Has left and right foot pain, has back pain, bilateral elbows, which are problematic. The patient is not being treated for rheumatoid arthritis. 2. Height 5 feet 8 inches, weight 245 pounds, BMI is 37.3. 3. Vital signs: Blood pressure 131/80, pulse 66, respiratory rate 18, room air saturations 100%. 4. Pain intensity 09/30. 5. Fall risk. The patient has not fallen in the last 3 months. 6. Blood thinner. The patient is not on a blood thinning medication. 7. Hypertension. The patient has not been treated for hypertension. 8. Opioid greater than 6 weeks. The patient receives her medication from one source, the pain clinic. 9. Risk assessment tool, low risk for opioid use. 10. Functional assessment tool 56/70. 11. Recreational drug use. The patient denies use of recreational drugs. 12. Tobacco: The patient has never smoked. [address] [address] PAIN MANAGEMENT CONSULTATION Name: BOWIENAYANA MARIE Room #: REG EZIO Mendes#: [id number] Admission: 03/18/18 Attend Phys: Sabi Hernández MD Discharge: Date of : 69 Report #: [id number] 13. Alcohol: The patient denies use of alcoholic beverages. PHYSICAL EXAMINATION: GENERAL: The patient is a well-developed, well-nourished black female, appears her stated age. She is alert and oriented x3. Affect is appropriate. Speech is fluent. HEENT: Normocephalic, atraumatic. Extraocular eye muscles intact. Sclerae nonicteric. Mucous membranes are moist. NECK: Without adenopathy or JVD. CHEST: Clear to auscultation without rhonchi or rales. HEART: Regular rate. S1, S2. ABDOMEN: Protuberant. Bowel sounds present. MUSCULOSKELETAL: Without significant scoliosis, kyphosis or lordosis. Upper muscle strength judged to be 5/5 for the major muscle groups. The patient has some soreness in her elbows. The patient has discomfort in her back as well. Has some pain and discomfort in her knees. Muscle strength in lower extremity judged to be 5-/5 for the major muscle groups. IMPRESSION: 1. History of diabetes in the past. 2. Asthma. 3. History of hypertension. 4. History of colon problems. 5. Osteoarthritis involving numerous joints. 6. Axial back pain requiring complex medical regimen. RECOMMENDATIONS: We discussed treatment options with the patient. Again, we discussed the use of opioid medications. Discussed the possible complications of addiction as well as decreased effectiveness secondary to intolerance. Overall, the patient feels the medication is helpful. She would like to continue with her medications. A script for her medications have been rewritten. She will continue with hydrocodone 10/325 one p.o. b.i.d., tizanidine 4 mg p.o. t.i.d. and will call us if she has any concerns with her medications. We would like to thank you for letting us participate in her care. We hope she continues to improve. By: [id number] Sabi Hernández MD /lonnie
[2018-03-18 11:24] VITALS: BP 131/80
== END ==
LOC: PAIN 10:30
DX: E11.9 Type 2 diabetes mellitus without complications (principal); J45.909 Unspecified asthma, uncomplicated; I10 Essential (primary) hypertension; M19.90 Unspecified osteoarthritis, unspecified site; M54.5 Low back pain; Z79.899 Other long term (current) drug therapy; Z85.038 Personal history of other malignant neoplasm of large intestine

== ENCOUNTER → 2018-04-15 | Outpatient (CLI) | payer OTHER ==
[~2018-04-15] VITALS: Ht 172.7 cm; Wt 113.1 kg
[~2018-04-15] MED LIST changes: +FLEXERIL PO
[2018-04-15 08:25] VITALS: BP 143/86
--- NOTE | 2018-04-15 08:39 | NUR ---
Pain Clinic Assessment: 1. History of Osteoarthritis: GENERALIZED History of Rheumatoid Arthritis: NONE 2. Height: 5 ft. 8 in. 172.7 cm. Weight: 249.4 lb. oz. 113.127 kg. Patient's BMI: 37.9 3. Vital Signs: BP: 143/86 Pulse: 71 Resp: 14 Temp: 02 Sat: 100 ECG Mon: 4. Pain Intensity: 8-TODAYS, 8-DAILY AVG 5. Fall Risk: Dizziness: N Needs help standing or walking: N Fallen in the last 3 months: N Fall risk comments: 6. Patient on Blood Thinner: None 7. History of Hypertension: N 8. Opioid Therapy greater than 6 weeks: Y Opiate Contract Signed: 09/09/16 9. Risk Assessment Tool Provided: LOW RISK-0 10. Functional Assessment Tool: 11. Recreational Drug Use: Never Drug Type: Tobacco Use: Never Smoker Tobacco Type: Amount or Packs/day: How Many Years: Alcohol Use: No Frequency: Quant:
--- NOTE | 2018-04-16 07:39 | HPC ---
[facility] [place] [address] PAIN MANAGEMENT CONSULTATION Name: NAYANA BOWIE Room #: REG EZIO Mendes#: [id number] Admission: 04/15/18 Attend Phys: Sofya Olson Discharge: Date of : 69 Report #: [id number] THIS REPORT FOR: //name// CC: Sofya Olson Anita Chicas DATE OF SERVICE: 04/15/2018 CHIEF COMPLAINT: Osteoarthritis affecting multiple joints. HISTORY OF PRESENT ILLNESS: This is a very pleasant 53-year-old female who has been followed in the pain clinic for her history of osteoarthritis. This arthritis affects her hands, knees, elbows, lower back, shoulders and neck. She tells me that her pain score today is 8/10. She is having some increased muscle spasms in different places in her body, one that she explains like in her feet, in her lower calf, in her thigh, various places that do not last very long but that tizanidine has not been helpful in relieving these muscle spasms. The patient also tells me that she has been having some constipation. She is unable to drink as much water as she liked to at work and has been having issues lately. She tells me that her pain is worse with movement and activity, but her pain medication does help relieve some of her discomfort. She would like a refill of her medications today and a possible change in her muscle relaxant. ALLERGIES: No known drug allergies. MEDICATIONS: Current list of medications: Meloxicam 7.5 mg twice a day, tizanidine 4 mg at bedtime and hydrocodone 10/325 twice a day. PQRS: 1. She does have history of osteoarthritis involving her knees, her hands, her shoulders, elbows and back. She denies rheumatoid arthritis. 2. Height is 5 feet 8 inches, weight is 249 and BMI is 37.9. 3. Vital signs: Blood pressure 143/86, pulse is 71, respirations 14 and oxygen sat 100. 4. Pain score is 8/10. 5. Fall risk. She denies dizziness, does not need help walking or standing. Has not fallen in the last 3 months. 6. She is not on a blood thinner, does not take antihypertensive. 7. Her opioid therapy is greater than 6 weeks; therefore, an opioid signed contract is on the chart. 8. Risk assessment tool is low. Her functional assessment is 56/70. 9. Recreational drug use: She denies. Does not a smoker and does not drink alcohol. We did check the prescription monitoring system. The patient is filling appropriately with her narcotics. The patient does tell me she safeguards her medications. We will check a fecal drug screen on her next visit. [address] [address] PAIN MANAGEMENT CONSULTATION Name: NAYNAA BOWIE Room #: REG CLMarichuy Mendes#: [id number] Admission: 04/15/18 Attend Phys: Sofya Olson Discharge: Date of : 69 Report #: [id number] PHYSICAL EXAMINATION: GENERAL: This is a well-developed, well-nourished black female who appears her stated age. She is alert and orientated and her affect is appropriate. Speech is fluent and she is a good historian. HEENT: Normocephalic and atraumatic. Extraocular eye muscles are intact. Mucous membranes are moist. NECK: Without adenopathy or JVD. MUSCULOSKELETAL: Without significant scoliosis, kyphosis or lordosis. Upper muscle strength judged to be 5/5 in all major muscle groups. The patient does complain of some muscle spasms in various locations including her feet, her right thigh and lower right leg that come intermittently. She does also complain of discomfort in her knees, hands, shoulders from her osteoarthritis. The patient does walk with a slightly antalgic gait. IMPRESSION: 1. History of diabetes in the past. 2. Asthma. 3. History of hypertension. 4. History of colon problems. 5. Osteoarthritis involving numerous joints. 6. History of gastric bypass surgery with significant weight loss. 7. Axial back pain, requiring complex medical management. We reviewed the fact that opiate medications are being used to provide analgesia adequate to support activities of daily living, not attempting to achieve a specific pain score on the 0-10 Visual Analog Scale. The current opiate medications are providing sufficient analgesia to allow the patient to participate in activities of daily living. The patient is not exhibiting any aberrant behavior suggestive of drug diversion. The patient is not having any adverse reactions to medications. The patient is not suffering from daytime somnolence or mental acuity changes. The patient is managing opiate-induced constipation with appropriate ijbo-vzl-lkrkbno agents and dietary considerations. The patient was counseled on concern for caution with operating a motor vehicle while using opiate medications. A physical exam was performed and the patient's functional status was evaluated. All patients with back pain were advised against the bed rest greater than 4 days and were advised to return to normal activities. Pain score assessment was noted and the treatment plan was reviewed with the patient. All current medications, both prescribed and OTC were reviewed and reconciled on the electronic medical record. Tobacco screening was accomplished and smoking cessation was advised when indicated. BMI was noted and diet/exercise modification was recommended for all patients following outside normal parameters. [address] [address] PAIN MANAGEMENT CONSULTATION Name: NAYANA BOWIE Room #: REG [facility]#: [id number] Admission: 04/15/18 Attend Phys: Sofya BRENDA Portillochivo Discharge: Date of : 69 Report #: [id number] I reviewed with the patient today their responsibilities to safeguard prescription medications, reviewed their responsibility to utilize medications only as prescribed by the physician. They are to seek and receive pain medications only from 1 physician group ( [facility]). They are to use 1 pharmacy and keep the clinic informed if they change pharmacies. Their responsibilities include making followup visits in a timely fashion and to avoid abrupt discontinuation of medication usage. Their responsibilities further include bringing their medications (bottles from the pharmacy with residual pills) to the visit for possible confirmation of pill counts and the patient understands it is their responsibility to submit to random drug screens to ensure both that the medications prescribed are present, and that no other controlled substances are present. All prescriptions provided today were generated electronically. PLAN: 1. We discussed treatment options today. The patient thinks that the hydrocodone is helpful in relieving a significant part of her discomfort. We will refill her hydrocodone 10/325, #60 for release today and 4-week. This falls way below the MME CDC guidelines of 50. She is at 20 MME per day. 2. The patient tells me that she is taking the Meloxicam that is sitting fine in her stomach and does not need a refill of that medication today. 3. The patient does complain of various muscle spasms that the tizanidine is not helpful with. We discussed increasing her water intake as well as food that may contain potassium but we will do a trial of Flexeril to take 1-2 tablets a day as needed. We will try this for a month. If she finds it helpful, we will call in another refill. If not that she does still have a refill of her tizanidine at the pharmacy that she may go back to. The patient is agreeable with this plan of care. 4. We discussed constipation. The patient tells me she is unsure if it is because she has not been able to drink as much water. 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 The patient will try and drink more before and after work. We also discussed qkyc-gwh-svufmwa medications such as MiraLax and Senokot. She has tried stool softeners in the past that have not been helpful. She will try these qkai-ohv-kqdkaon remedies and see if they are helpful in reducing her constipation such as mirlax and senna. 5. The patient will be seen in 2 months' time. The patient made an appointment prior to leaving today: 6. The patient is seen in collaboration today with Dr. Antonio Hernández. <ELECTRONICALLY SIGNED> By: Sofya Olson 04/16/18 [id number] Sofya Olson /lonnie
== END ==
LOC: PAIN 06:51
DX: M19.90 Unspecified osteoarthritis, unspecified site (principal); E11.9 Type 2 diabetes mellitus without complications; J45.909 Unspecified asthma, uncomplicated; I10 Essential (primary) hypertension; Z98.84 Bariatric surgery status

== ENCOUNTER → 2018-06-08 | Outpatient (CLI) | payer OTHER ==
[~2018-06-08] VITALS: Ht 172.7 cm; Wt 112.4 kg
[2018-06-08 14:09] VITALS: BP 136/62
--- NOTE | 2018-06-08 14:22 | NUR ---
Pain Clinic Assessment: 1. History of Osteoarthritis: GENERALIZED History of Rheumatoid Arthritis: NONE 2. Height: 5 ft. 8 in. 172.7 cm. Weight: 247.8 lb. oz. 112.402 kg. Patient's BMI: 37.7 3. Vital Signs: BP: 136/62 Pulse: 70 Resp: 16 Temp: 02 Sat: 97 ECG Mon: 4. Pain Intensity: 8 5. Fall Risk: Dizziness: N Needs help standing or walking: N Fallen in the last 3 months: N Fall risk comments: \ 6. Patient on Blood Thinner: None 7. History of Hypertension: N 8. Opioid Therapy greater than 6 weeks: Y Opiate Contract Signed: 09/09/16 9. Risk Assessment Tool Provided: LOW RISK-0 10. Functional Assessment Tool: 11. Recreational Drug Use: Never Drug Type: Tobacco Use: Never Smoker Tobacco Type: Amount or Packs/day: How Many Years: Alcohol Use: No Frequency: Quant:
--- NOTE | 2018-06-09 08:43 | HPC ---
[facility] [place] [address] PAIN MANAGEMENT CONSULTATION Name: NAYANA BOWIE Room #: REG [facility] Watson.#: [id number] Admission: 06/08/18 ������������������ Attend Phys: Sofya Olson Discharge: ������������������ Date of : 69 Report #: [id number] THIS REPORT FOR: //name// CC: Sofya Olson Anita Chicas DATE OF SERVICE: 06/08/2018 CHIEF COMPLAINT: Osteoarthritis affecting multiple joints. HISTORY OF PRESENT ILLNESS: This is a very pleasant 53-year-old female who returns to the Pain Clinic today for refill of her medications. She tells me that her pain score is 8/10 today telling me that her knees have been giving her problems lately as well as her upper back and neck. She is unsure if it is due to the weather or for pain is just getting worse. She tells me that she feels that the Flexeril does not really help with her muscle spasms and has gone back to taking tizanidine 2-3 times a day, feels that is very helpful with her muscle spasms. She tells me the medications that she takes are very helpful and movement and activity make her pain worse. She denies any problems with constipation. She has started taking Senokot on as needed basis and found that it has been very helpful. Today, she would like a refill of her medications and have tizanidine in place of Flexeril. CURRENT ALLERGIES: No medicines. HOME MEDICATIONS: Hydrocodone 10/325 b.i.d., Meloxicam 7.5 b.i.d. and tizanidine 4 mg 3 times a day. PQRS: 1. She has a history of osteoarthritis involving her knees and her hands her shoulders, elbows and back. Denies any rheumatoid arthritis. 2. Height is 5 feet 8 inches, weight is 247 and BMI is 37. 3. VITAL SIGNS: Blood pressure 136/62, pulse is 70, respirations 16 and oxygen sat is 97. 4. Pain score is 8/10. Denies dizziness. Does not need help walking or standing. Has not fallen in the last 3 months. 5. The patient is not on any blood thinners and does not have any history of hypertension. 6. Opioid therapy is greater than 6 weeks; therefore, an opioid signed contract is on the chart. 7. Risk assessment tool is low. Her functional assessment is 56/70. 8. Recreational drug use, she denies. She is not a smoker and does not drink alcohol. We did check the prescription monitoring system. The patient is filling it appropriately for her medications and is on time for her medications today. We will check an oral drug swab to check her opiate medications today. The patient tells me that she does safeguard her medications. [facility] [address] [place] [address] PAIN MANAGEMENT CONSULTATION Name: NAYANA BOWIE Room #: REG EZIO Mendes#: [id number] Admission: 06/08/18 ������������������ Attend Phys: Sofya Olson Discharge: ������������������ Date of : 69 Report #: [id number] PHYSICAL EXAMINATION: GENERAL: This is a well-developed, well-nourished black female who appears her stated age. She is alert and orientated. Speech is fluent. HEENT: Normocephalic and atraumatic. Extraocular eye muscles are intact. Mucous membranes are moist and hearing is adequate. NECK: Without adenopathy or JVD. Does complain of slight tenderness with range of motion today. MUSCULOSKELETAL: Without significant scoliosis, kyphosis or lordosis. Upper strength judged to be 5/5 in all major muscle groups. The patient does complain of some muscle spasms in her lower back and complains of knee pain today bilaterally. She does walk with a slightly antalgic gait and lower extremity strength judged to be 5/5 in all major muscle groups. ASSESSMENT: 1. History of diabetes in the past. 2. Asthma. 3. Hypertension. 4. History of colon problems. 5. Osteoarthritis involving numerous joints. 6. History of gastric bypass surgery. 7. Axial back pain requiring complex medical management. We reviewed the fact that opiate medications are being used to provide analgesia adequate to support activities of daily living, not attempting to achieve a specific pain score on the 0-10 Visual Analog Scale. The current opiate medications are providing sufficient analgesia to allow the patient to participate in activities of daily living. The patient is not exhibiting any aberrant behavior suggestive of drug diversion. The patient is not having any adverse reactions to medications. The patient is not suffering from daytime somnolence or mental acuity changes. The patient is managing opiate-induced constipation with appropriate nmzj-ilw-dvadnlg agents and dietary considerations. The patient was counseled on concern for caution with operating a motor vehicle while using opiate medications. A physical exam was performed and the patient's functional status was evaluated. All patients with back pain were advised against the bed rest greater than 4 days and were advised to return to normal activities. Pain score assessment was noted and the treatment plan was reviewed with the patient. All current medications, both prescribed and OTC were reviewed and reconciled on the electronic medical record. Tobacco screening was accomplished and smoking cessation was advised when indicated. BMI was noted and diet/exercise modification was recommended for all patients following outside normal parameters. I reviewed with the patient today their responsibilities to safeguard [address] [address] PAIN MANAGEMENT CONSULTATION Name: NAYANA BOWIE Room #: REG [facility].#: [id number] Admission: 06/08/18 ������������������ Attend Phys: Sofya Olson Discharge: ������������������ Date of : 69 Report #: [id number] prescription medications, reviewed their responsibility to utilize medications only as prescribed by the physician. They are to seek and receive pain medications only from 1 physician group ( [facility]). They are to use 1 pharmacy and keep the clinic informed if they change pharmacies. Their responsibilities include making followup visits in a timely fashion and to avoid abrupt discontinuation of medication usage. Their responsibilities further include bringing their medications (bottles from the pharmacy with residual pills) to the visit for possible confirmation of pill counts and the patient understands it is their responsibility to submit to random drug screens to ensure both that the medications prescribed are present, and that no other controlled substances are present. All prescriptions provided today were generated electronically. PLAN: 1. We discussed treatment options with the patient today. The patient tells me that she feels that her medications have been very helpful in reducing her pain. She does tell me though the Flexeril was not as helpful with her muscle spasms as the tizanidine and she would like to return to tizanidine tablets. She has currently been taking some leftover medications and found that they have been more beneficial. 2. Scripts given for hydrocodone 10/325, #60, this has the patient at 20 morphine mEq today, clear below the CDC guidelines. Scripts given also for tizanidine 4 mg, #75 to take up to 3 times a day with one additional refill and meloxicam 7.5 b.i.d., #60 with one additional refill. 3. Oral drug swab, this is checked for drug screen today on this patient. 4. Dr. Victoria saw the patient and collaborated with her care today. The patient will return in followup in 2 months' time. ��������������������������������������������� <ELECTRONICALLY SIGNED> ���������������������������������������� By: Sofya Olson ��������������������������������������������� 06/09/18 0843 [id number] Sofya Olson /nt
== END ==
LOC: PAIN 07:07
DX: E11.9 Type 2 diabetes mellitus without complications (principal); J45.909 Unspecified asthma, uncomplicated; I10 Essential (primary) hypertension; M19.90 Unspecified osteoarthritis, unspecified site; Z85.038 Personal history of other malignant neoplasm of large intestine; Z98.84 Bariatric surgery status; Z79.899 Other long term (current) drug therapy

== ENCOUNTER → 2018-08-03 | Outpatient (CLI) | payer OTHER ==
[~2018-08-03] MED LIST changes: +TIZANIDINE HCL4 MG PO
--- NOTE | 2018-08-03 10:38 | NUR ---
Pain Clinic Assessment: 1. History of Osteoarthritis: GENERALIZED History of Rheumatoid Arthritis: NONE 2. Height: ft. in. cm. Weight: lb. oz. kg. Patient's BMI: 3. Vital Signs: BP: Pulse: Resp: Temp: 02 Sat: ECG Mon: 4. Pain Intensity: 10 5. Fall Risk: Dizziness: Needs help standing or walking: Fallen in the last 3 months: Fall risk comments: \ 6. Patient on Blood Thinner: None 7. History of Hypertension: N 8. Opioid Therapy greater than 6 weeks: Y Opiate Contract Signed: 09/09/16 9. Risk Assessment Tool Provided: LOW RISK-0 10. Functional Assessment Tool: 56/70 11. Recreational Drug Use: Never Drug Type: Tobacco Use: Never Smoker Tobacco Type: Amount or Packs/day: How Many Years: Alcohol Use: No Frequency: Quant:
--- NOTE | 2018-08-04 07:55 | HPC ---
[facility] [address] [place] [address] PAIN MANAGEMENT CONSULTATION Name: NAYANA BOWIE Room #: REG Marichuy Mendes#: [id number] Admission: 08/03/18 ������������������ Attend Phys: Sofya Olson Discharge: ������������������ Date of : 69 Report #: [id number] THIS REPORT FOR: //name// CC: Sofya Olson Anita Chicas DATE OF SERVICE: 08/03/2018 CHIEF COMPLAINT: Osteoarthritis affecting multiple joints and low back pain. HISTORY OF PRESENT ILLNESS: This is a very pleasant 53-year-old female who returns to the pain clinic today complaining of significant lower back pain as well as her ongoing pain in multiple joints. She would like a refill of her medications today and to discuss recent increase in her pain in her lower back. The patient tells me that she felt a shock-like feeling a couple of weeks ago in her lower back. It continues to this day, mostly on her right side of her lower back, does not radiate down her legs or into her hips. She tells me it is very centralized area on the right side of her lumbar spine. She rates her pain at 10/10 today, mostly achy, sore, spasm feeling, worse with movement, but also has pain when she is sitting still. She has tried heat and ice and muscle relaxants though they are not very helpful. She was wondering about a possible increase in her pain medication to see if that helps ease this pain. ALLERGIES: No known drug allergies. MEDICATIONS: Meloxicam 7.5 mg b.i.d., tizanidine 4 mg t.i.d., hydrocodone 10/325 b.i.d. PQRS: 1. She has a history of osteoarthritis involving her knees, hands, shoulders, elbows, back and denies any rheumatoid arthritis. 2. Height is 5 feet 8, not weighed today. Blood pressure documented as well. Pain score is 10/10. 3. Denies dizziness. Does not need help with walking or standing and has not fallen in the last 3 months. The patient is not on any blood thinners. She does not take medicine for hypertension. 4. Her opioid therapy is greater than 6 weeks; therefore, an opioid signed contract is on the chart. 5. Her risk assessment tool is low. Functional assessment is 56/70. 6. Recreational drug use. She denies. She is not a smoker and does not drink alcohol. We did check the prescription monitoring system. The patient is filling appropriately from doctors within our clinic and is due for a refill later this week. There is a random drug screen on the chart as well that is appropriate for the medication she is taking. [address] [address] PAIN MANAGEMENT CONSULTATION Name: BOWIENAYANA Room #: REG EZIO Mendes#: [id number] Admission: 08/03/18 ������������������ Attend Phys: Sofya Olson Discharge: ������������������ Date of : 69 Report #: [id number] PHYSICAL EXAMINATION: GENERAL: This is a well-developed, well-nourished black female who appears her stated age, placing her current pain score 10/10. She is alert and orientated. HEENT: Normocephalic, atraumatic. Extraocular eye muscles are intact. Mucous membranes are moist. Hearing is adequate. NECK: Without adenopathy or JVD. MUSCULOSKELETAL: She does have scoliosis. Her upper extremity strength judged to be 5/5 in all major muscle groups. She complains of some muscle shocking spasm feeling in her lumbar region at the L4-L5 and L5-S1 dermatomal area. She tells me it does not radiate into her hips or her legs. She has pain with extension and flexion as well as rotation most significantly on the right side. No pain noted on the left side of her lumbar spine. She does walk with a slightly antalgic gait. Her lower extremity strength judged to be 5/5 in all major muscle groups and tone. ASSESSMENT: 1. Asthma. 2. Hypertension. 3. History of colon problems. 4. Osteoarthritis involving numerous joints. 5. History of gastric bypass surgery. 6. Axial back pain requiring complex medical management. 7. Facet arthroscopy at the L4-L5 and L5-S1 distribution area. We reviewed the fact that opiate medications are being used to provide analgesia adequate to support activities of daily living, not attempting to achieve a specific pain score on the 0-10 Visual Analog Scale. The current opiate medications are providing sufficient analgesia to allow the patient to participate in activities of daily living. The patient is not exhibiting any aberrant behavior suggestive of drug diversion. The patient is not having any adverse reactions to medications. The patient is not suffering from daytime somnolence or mental acuity changes. The patient is managing opiate-induced constipation with appropriate sczl-sle-cnapxoj agents and dietary considerations. The patient was counseled on concern for caution with operating a motor vehicle while using opiate medications. A physical exam was performed and the patient's functional status was evaluated. All patients with back pain were advised against the bed rest greater than 4 days and were advised to return to normal activities. Pain score assessment was noted and the treatment plan was reviewed with the patient. All current medications, both prescribed and OTC were reviewed and reconciled on the electronic medical record. Tobacco screening was accomplished and smoking cessation was advised when indicated. BMI was noted and diet/exercise modification was recommended for all patients following outside normal parameters. [address] [place] [address] PAIN MANAGEMENT CONSULTATION Name: NAYANA BOWIE Room #: REG [facility] Watson.#: [id number] Admission: 08/03/18 ������������������ Attend Phys: Sofya BRENDA Whitney Discharge: ������������������ Date of : 69 Report #: [id number] I reviewed with the patient today their responsibilities to safeguard prescription medications, reviewed their responsibility to utilize medications only as prescribed by the physician. They are to seek and receive pain medications only from 1 physician group ( [facility]). They are to use 1 pharmacy and keep the clinic informed if they change pharmacies. Their responsibilities include making followup visits in a timely fashion and to avoid abrupt discontinuation of medication usage. Their responsibilities further include bringing their medications (bottles from the pharmacy with residual pills) to the visit for possible confirmation of pill counts and the patient understands it is their responsibility to submit to random drug screens to ensure both that the medications prescribed are present, and that no other controlled substances are present. All prescriptions provided today were generated electronically. PLAN: 1. We discussed treatment options with the patient today. The patient is wondering if she is able to have increase in her hydrocodone due to this increased back pain that she is requiring muscle relaxants 3 times a day and occasionally taking 3 hydrocodone a day. We discussed the CDC guidelines trying to keep people at the lowest most effective dose. I believe since she is having this increased pain that we will enable her to increase her hydrocodone to 3 times a day for 1 month and then decrease her back to 2 tablets a day. This plan was discussed with Dr. Victoria and he is in agreement at this time. Scripts given for hydrocodone 10/325, #90 for today's release and #60 for release in 4 weeks. 2. Based on the physical exam findings of pain with extension and flexion and rotation, I believe that the patient is a candidate for a right facet injection at levels L4-L5 and L5-S1. I believe this will be helpful in decreasing some of this pain that the patient is experiencing in this area. The patient has not had facet injections in the past. We discussed treatment options with her and facet injections versus lumbar epidural steroid injections, which she has had in the past. Dr. Victoria did examine the patient as well and agreed to schedule the patient back for facet injection. 3. Scripts given today also for tizanidine 4 mg #90 and meloxicam 7.5 twice a day, #60. 4. The patient will make an appointment in a week for an injection after it is precerted and we seek authorization from her insurance company for the facet injection done by Dr. Krystian Hernández. 5. The patient is seen in collaboration today with Dr. Scott Victoria. An appointment made for 08/12/2018. ��������������������������������������������� <ELECTRONICALLY SIGNED> ���������������������������������������� By: Sofya Olson ��������������������������������������������� 08/04/18 0755 [id number] Sofya Olson /nt
== END ==
LOC: PAIN 06:40
DX: M19.90 Unspecified osteoarthritis, unspecified site (principal); M54.5 Low back pain; I10 Essential (primary) hypertension; J45.909 Unspecified asthma, uncomplicated; Z79.899 Other long term (current) drug therapy; Z87.19 Personal history of other diseases of the digestive system

== ENCOUNTER → 2018-08-12 | Outpatient (CLI) | payer OTHER ==
[~2018-08-12] VITALS: Ht 172.7 cm; Wt 118.0 kg
[2018-08-12 12:44] VITALS: BP 127/62
--- NOTE | 2018-08-12 13:07 | NUR ---
Pain Clinic Assessment: 1. History of Osteoarthritis: GENERALIZED History of Rheumatoid Arthritis: NONE 2. Height: 5 ft. 8 in. 172.7 cm. Weight: 260.2 lb. oz. 118.026 kg. Patient's BMI: 39.6 3. Vital Signs: BP: 127/62 Pulse: 81 Resp: 16 Temp: 02 Sat: 100 ECG Mon: 4. Pain Intensity: 10 5. Fall Risk: Dizziness: N Needs help standing or walking: N Fallen in the last 3 months: N Fall risk comments: \ 6. Patient on Blood Thinner: None 7. History of Hypertension: N 8. Opioid Therapy greater than 6 weeks: Y Opiate Contract Signed: 09/09/16 9. Risk Assessment Tool Provided: LOW RISK-0 10. Functional Assessment Tool: / 11. Recreational Drug Use: Never Drug Type: Tobacco Use: Never Smoker Tobacco Type: Amount or Packs/day: How Many Years: Alcohol Use: No Frequency: Quant:
--- NOTE | 2018-08-26 08:16 | HPC ---
[facility] [address] [address] PAIN MANAGEMENT CONSULTATION Name: NAYANA BOWIE Room #: REG EZIO [facility]#: [id number] Admission: 08/12/18 ������������������ Attend Phys: Sabi Hernández MD Discharge: ������������������ Date of : 69 Report #: [id number] THIS REPORT FOR: //name// CC: Anita Hernández DATE OF SERVICE: 08/12/2018 CHIEF COMPLAINT: Osteoarthritis, back and joint pain. HISTORY: The patient is a 53-year-old female, who has been followed in the pain clinic because of chronic pain. She has pain in a number of joints. She has been experiencing increased pain in the low back area. Movement from left to right, forward bending, and lumbar extension all cause increasing back pain and discomfort. She rates her pain as a 10/10 today. She has noted some muscle spasms in the low back area. She has tried conservative approaches such as heat, cold, ice, muscle relaxants, and stretching. As you recall, she has osteoarthritis in her knees, hands, shoulders, elbows, and back area. CURRENT MEDICATIONS: Meloxicam 7.5 mg, tizanidine 4 mg, and hydrocodone 10/325 b.i.d. ALLERGIES: No known drug allergies. PAIN CLINIC ASSESSMENT AND PQRS: 1. The patient has history of osteoarthritis involving her knees, hands, shoulders, elbows, and back, but she is not being treated for rheumatoid arthritis. 2. Pain intensity is 10/10. 3. Fall history. The patient has not fallen in the last 3 months. 4. Blood thinner. The patient is not on a blood thinning medication. 5. Hypertension. The patient is not being treated for hypertension. 6. Opioids greater than 6 weeks. The patient receives her medication from one source, the pain clinic. 7. Risk assessment tool, low for opioid use. 8. Functional assessment tool, 56/70. 9. Recreational drug use. The patient denies. 10. Tobacco: The patient has never smoked. 11. Alcohol: The patient denies use of alcoholic beverages. PHYSICAL EXAMINATION: GENERAL: The patient is a well-developed, well-nourished, somewhat obese black female. She is alert and oriented x 3. Her affect is appropriate. Speech is fluent. Height is 5 feet 8 inches, weight is 260 pounds, and BMI is 39.6. VITAL SIGNS: Blood pressure is 127/62, pulse is 81, respiratory rate is 16, and room air saturation is 100%. [address] [address] PAIN MANAGEMENT CONSULTATION Name: NAYANA BOWIE Room #: REG [facility]#: [id number] Admission: 08/12/18 ������������������ Attend Phys: Sabi Hernández MD Discharge: ������������������ Date of : 69 Report #: [id number] HEENT: Normocephalic, atraumatic. Extraocular eye muscles intact. Sclerae nonicteric. Mucous membranes are moist. HEART: Regular rate. ABDOMEN: Nontender. Protuberant. EXTREMITIES: Upper extremity muscle strength is judged to be 5-/5 for the major muscle groups. The patient has complained of pain and discomfort in the lower portion of her back, has muscle soreness with increased discomfort with left and right bending, left and right rotation, lumbar extension, forward flexion, and activities of daily living. She does walk with an antalgic gait. Lower extremity muscle strength is judged to be 5-/5 for the major muscle groups. IMPRESSION: 1. Myofascial pain with pain and discomfort in the low back area as well as arthritic changes of the facets in the low back area. 2. Hypertension. 3. History of colon problems. 4. Osteoarthritis involving numerous joints. 5. History of gastric bypass surgery. 6. Axial back pain, requiring complex medical management. 7. Facet arthrosis at L4-L5 and L5-S1. RECOMMENDATIONS: We have discussed treatment options with the patient. At this juncture, she has a significant amount of myofascial pain in the low back area. It radiates around the low back area near the gluteus myrtle and latissimus dorsi. Also, has pain and discomfort near the area of iliocostalis lumborum, left and right. We have discussed the risks and benefits of trigger point injections to the affected areas. She elects to proceed and desires treatment. PROCEDURE: The patient was taken to the procedure area. She was placed in the prone position. Trigger points were noted in the left and right low back area. Trigger points are noted in the area of the L5-S1 paramedian area as well as the L4-L5 paramedian area, left and right. These are near the low back area and correspond to the patients pain. Her back was sterilely prepped with a Betadine solution. A 25-gauge needle was then used to anesthetize the left L5 area in the area of the latissimus dorsi. At the area of L4-L5, palpation in this area reproduced a trigger point in the area of the latissimus dorsi as well. A 25-gauge needle was then advanced into the second trigger point on the right side. Aspiration was negative. A total of 3 mL of 0.5% bupivacaine and 20 mg of triamcinolone was injected. The contralateral side on the left was treated in a like fashion. Trigger point was identified at the third trigger point in a space near the lateral portion near the transverse process of L4. This was then identified. A total of 4 mL of 0.5% bupivacaine and 20 mg of triamcinolone was injected in this area. The fourth trigger point near the lateral transverse process of L5 was identified. A total of 6 mL of 0.5% bupivacaine and 20 mg of triamcinolone was injected. The patient tolerated the procedure well. There were no complications. [place] [address] PAIN MANAGEMENT CONSULTATION Name: NAYANA BOWIE Room #: REG [facility].#: [id number] Admission: 08/12/18 ������������������ Attend Phys: Sabi Hernández MD Discharge: ������������������ Date of : 69 Report #: [id number] clinic for an appropriate amount of time. She will follow up in the future as needed. We would like to thank you for letting us to participate in her care. We hope she continues to improve. ��������������������������������������������� <ELECTRONICALLY SIGNED> ���������������������������������������� By: Sabi Hernández MD ��������������������������������������������� 08/26/18 0816 1131 0125 Sabi Hernández MD /RACQUEL
== END | disposition home or self-care (01) ==
LOC: PAIN 07:07
DX: M79.18 Myalgia, other site (principal); G89.29 Other chronic pain; M46.96 Unspecified inflammatory spondylopathy, lumbar region; I10 Essential (primary) hypertension; M19.90 Unspecified osteoarthritis, unspecified site; M54.9 Dorsalgia, unspecified; Z79.891 Long term (current) use of opiate analgesic; Z87.19 Personal history of other diseases of the digestive system; Z98.890 Other specified postprocedural states; Z79.899 Other long term (current) drug therapy

== ENCOUNTER → 2018-10-07 | Outpatient (CLI) | payer OTHER ==
[~2018-10-07] VITALS: Ht 172.7 cm; Wt 113.9 kg
--- NOTE | ~2018-10-07 | HPC ---
[facility] [address] [place] [address] PAIN MANAGEMENT CONSULTATION Name: NAYANA BOWIE Room #: REG EZIO ParrishEvaKhurram#: [id number] Admission: 10/07/18 ������������������ Attend Phys: Sabi Hernández MD Discharge: ������������������ Date of : 69 Report #: [id number] THIS REPORT FOR: //name// CC: Anita Hernández DATE OF SERVICE: 10/07/2018 CHIEF COMPLAINT: Low back pain, improved after the injection. HISTORY: The patient is a 53-year-old female who has been followed in the pain clinic because of chronic pain. She has had pain in a number of joints. She underwent injections in the low back area at the last visit. She returns today indicating that her pain improved after that. It is a 09/30. She has had no complications from the procedure. Overall, her medications continue to be helpful. She still has pain in her shoulders, left and right; elbows, left and right, neck, lower back, knees, both hands and muscle spasms generally all over. She has been having pain since 2010. This involves the lower back. In 2016, elbows, knees, hands and upper back and neck became more problematic. Has an aching discomfort, soreness with spasms. Notes that her pain is exacerbated with motion and activity. It improves somewhat with medications, cold packs as well as rest. She has returned today for renewal of her medications and evaluation of her current medical regimen. ALLERGIES: No known drug allergies. CURRENT MEDICATIONS: Meloxicam 7.5 mg, tizanidine 4 mg, hydrochlorothiazide, hydrocodone 10/325 b.i.d. PAIN CLINIC ASSESSMENT AND PQRS: 1. The patient has a history of osteoarthritis involving her knees, hands, shoulders and back. She is not being treated for rheumatoid arthritis. 2. Height 5 feet 8 inches, weight 251 pounds, BMI is 38.2. 3. Vital Signs: Blood pressure 158/74, pulse is 110, respiratory rate 16, room air saturation 99%. 4. Pain intensity, 09/30. 5. Fall history: The patient has not fallen in the last 3 months. 6. Blood thinner. The patient is not on a blood thinning medication. 7. Hypertension. The patient is not being treated for hypertension. 8. Opioids greater than 6 weeks. The patient receives her medications from one source, the pain clinic. 9. Risk assessment tool, low for opioid use. 10. Functional assessment tool, 56/70. 11. Recreational drug use. The patient denies use of recreational drugs. 12. Tobacco: The patient has never smoked. 13. Alcohol: The patient denies use of alcoholic beverages. [facility] [address] [place] [address] PAIN MANAGEMENT CONSULTATION Name: NAYANA BOWIE MARIE Room #: REG EZIO Mendes#: [id number] Admission: 10/07/18 ������������������ Attend Phys: Sabi Hernández MD Discharge: ������������������ Date of : 69 Report #: [id number] PHYSICAL EXAMINATION: GENERAL: The patient is a well-developed, well-nourished, somewhat obese black female. She is alert and oriented x 3. Her affect is appropriate. Speech is fluent. HEENT: Normocephalic, atraumatic. Extraocular eye muscles intact. Sclerae nonicteric. Mucous membranes are moist. NECK: Without adenopathy or JVD. HEART: Regular rate. ABDOMEN: Nontender. Bowel sounds present. EXTREMITIES: Upper extremity muscle strength judged to be 5-/5 for the major muscle groups in the upper extremity. The patient has pain and discomfort in lower portion of her back. She has been experiencing some muscle spasms in the lower portion of the back. Has increased pain with left and right bending, lumbar extension and rotation. Does have slightly antalgic walk. The patient can note some increased pain in her hands, thumbs, shins and down into her calves. IMPRESSION: 1. Myofascial pain with pain and discomfort in the lower back area as well as aforementioned places. Has some changes in the facet joints and low back area. 2. Hypertension. 3. History of colon problems. 4. Osteoarthritis involving numerous joints. 5. History of gastric bypass surgery. 6. Axial back pain, requiring complex medical management using opioids. 7. Facet arthrosis at L4-L5 and L5-S1. RECOMMENDATIONS: We discussed treatment options with the patient. At this juncture, we will continue with her medications. We have had a discussion as well as in the past regarding use of opioid medications. They can be helpful for some patients. Long-term use can be less efficacious secondary to development of tolerance. The patient feels that the medications are helpful. These medications in conjunction with tizanidine, Mobic are helpful and enable her to engage in activities she would not be able to without their use. She has returned today for renewal of her medications. A script for [place] 10/325 1 p.o. b.i.d. have been written. The patient will also continue with Mobic 7.5 mg 1 p.o. b.i.d. She will monitor her GI tract for the problems associated with nonsteroidal anti-inflammatory medications. She also continue with tizanidine, which has a muscle relaxant. Hopefully, we will continue to decrease the amount of low back pain as well as muscle spasms she has been experiencing. Has discomfort in her hands, thumbs, shins, and calves. She will keep her medications in a guarded area. She is aware that opioid medications has been problematic and in the news 70,000 people last year as a result of overdose of medication. She feels that her medications are helpful and would like to continue their use. [facility] [address] [address] PAIN MANAGEMENT CONSULTATION Name: JMAIRNAYANA SALAZAR Room #: REG CLI [facility]#: [id number] Admission: 10/07/18 ������������������ Attend Phys: Sabi Hernández MD Discharge: ������������������ Date of : 69 Report #: [id number] We would like to thank you for letting us participate in her care. ��������������������������������������������� ���������������������������������������� By: ��������������������������������������������� [id number] Sabi Hernández MD /RACQUEL
[2018-10-07 12:57] VITALS: BP 158/74
--- NOTE | 2018-10-07 13:20 | NUR ---
Pain Clinic Assessment: 1. History of Osteoarthritis: GENERALIZED History of Rheumatoid Arthritis: NONE 2. Height: 5 ft. 8 in. 172.7 cm. Weight: 251.0 lb. oz. 113.853 kg. Patient's BMI: 38.2 3. Vital Signs: BP: 158/74 Pulse: 110 Resp: 16 Temp: 02 Sat: 99 ECG Mon: 4. Pain Intensity: 7 5. Fall Risk: Dizziness: N Needs help standing or walking: N Fallen in the last 3 months: N Fall risk comments: \ 6. Patient on Blood Thinner: None 7. History of Hypertension: N 8. Opioid Therapy greater than 6 weeks: Y Opiate Contract Signed: 09/09/16 9. Risk Assessment Tool Provided: LOW RISK-0 10. Functional Assessment Tool: 11. Recreational Drug Use: Never Drug Type: Tobacco Use: Never Smoker Tobacco Type: Amount or Packs/day: How Many Years: Alcohol Use: No Frequency: Quant:
== END ==
LOC: PAIN 12:42
DX: M47.897 Other spondylosis, lumbosacral region (principal); M79.18 Myalgia, other site; I10 Essential (primary) hypertension; M19.90 Unspecified osteoarthritis, unspecified site; Z79.891 Long term (current) use of opiate analgesic

== ENCOUNTER → 2018-12-04 | Outpatient (CLI) | payer OTHER ==
[~2018-12-04] VITALS: Ht 172.7 cm; Wt 110.2 kg
[~2018-12-04] MED LIST changes: +ZANAFLEX4 M2 PO
[2018-12-04 08:31] VITALS: BP 148/78
--- NOTE | 2018-12-04 08:42 | NUR ---
Pain Clinic Assessment: 1. History of Osteoarthritis: GENERALIZED History of Rheumatoid Arthritis: NONE 2. Height: 5 ft. 8 in. 172.7 cm. Weight: 243.0 lb. oz. 110.224 kg. Patient's BMI: 37.0 3. Vital Signs: BP: 148/78 Pulse: 61 Resp: 14 Temp: 02 Sat: 98 ECG Mon: 4. Pain Intensity: 8 5. Fall Risk: Dizziness: N Needs help standing or walking: N Fallen in the last 3 months: N Fall risk comments: \ 6. Patient on Blood Thinner: None 7. History of Hypertension: N 8. Opioid Therapy greater than 6 weeks: Y Opiate Contract Signed: 09/09/16 9. Risk Assessment Tool Provided: LOW RISK-0 10. Functional Assessment Tool: 53/ 11. Recreational Drug Use: Never Drug Type: Tobacco Use: Never Smoker Tobacco Type: Amount or Packs/day: How Many Years: Alcohol Use: No Frequency: Quant:
--- NOTE | 2018-12-07 07:23 | HPC ---
[facility] [place] [address] PAIN MANAGEMENT CONSULTATION Name: NAYANA BOWIE Room #: REG [facility] M.R.#: [id number] Admission: 12/04/18 ������������������ Attend Phys: Sofya Olson Discharge: ������������������ Date of : 69 Report #: [id number] THIS REPORT FOR: //name// CC: Sofya Olson Anita Chicas DATE OF SERVICE: 12/04/2018 CHIEF COMPLAINT: Low back pain and muscle spasms. HISTORY OF PRESENT ILLNESS: This is a very pleasant 53-year-old female who returns to the pain clinic today for refill of her medications that she uses to help treat her ongoing low back pain as well as other areas that she does experience muscle spasms in, in her lower back, hands, legs and shoulders. She rates her pain as an 8/10 today. It is an aching, radiating spasm pain that is worse with movement and activity and walking, but her medications are very beneficial as well as resting and lying down. She does find that the tizanidine has been very beneficial in helping her muscle spasms. She tells me that she still has them occasionally, but not in as many places. She feels that the tizanidine is very beneficial. She is returning today for renewal of her medications. ALLERGIES: No known drug allergies. CURRENT LIST OF MEDICATIONS: Tizanidine 4 mg t.i.d. p.r.n., meloxicam 7.5 mg b.i.d., hydrocodone 10/325 t.i.d. PQRS: 1. She has a history of osteoarthritis involving her knees, hands, shoulders and back. She is not being treated for rheumatoid arthritis. 2. Height is 5 feet 8 inches, weight is 243, BMI is 37. 3. Vital signs 148/78, pulse is 61, respirations 14, oxygen saturation is 98. 4. Pain score is 8/10. 5. Denies dizziness, does not need help walking or standing, has not fallen in the last 3 months. 6. The patient is not on any blood thinners or hypertension medicines. 7. Opiate therapy is greater than 6 weeks; therefore, an opiate signed contract is on the chart. Risk assessment tool is low. Functional assessment is 53/70. 8. Recreational drug use, she denies. She is not a smoker and does not drink alcohol. According to the prescription monitoring system, the patient is filling appropriately for her medications. She is due to fill those in a couple of days. There is a recent drug screen on the chart as well that is [place] [address] PAIN MANAGEMENT CONSULTATION Name: NAYANA BOWIE Room #: REG EZIO Mendes#: [id number] Admission: 12/04/18 ������������������ Attend Phys: Sofya Olson Discharge: ������������������ Date of : 69 Report #: [id number] PHYSICAL EXAMINATION: GENERAL: This is a well-developed, well-nourished, slightly obese white female, placing her current pain score at 8/10. Her affect is appropriate. HEENT: Normocephalic, atraumatic. Extraocular eye muscles are intact. Mucous membranes are moist. NECK: Without adenopathy or JVD. MUSCULOSKELETAL: Upper extremity strength judged to be 5/5 in all major muscle groups. She does have muscle spasms in the lower portion of her back as well as some pain and discomfort. It is increased with bending and extension and rotation of her lumbar spine. She has a slightly antalgic gait. IMPRESSION: 1. Myofascial pain with pain and discomfort in the low back as well as hands, thumbs, shins, legs. 2. History of gastric bypass. 3. Axial back pain requiring complex medical management using opioids. 4. Facet arthrosis at L4-L5 and L5-S1. 5. Osteoarthritis involving multiple joints. 6. Complex medical management under terms of written opioid agreement. We reviewed the fact that opiate medications are being used to provide analgesia adequate to support activities of daily living, not attempting to achieve a specific pain score on the 0-10 Visual Analog Scale. The current opiate medications are providing sufficient analgesia to allow the patient to participate in activities of daily living. The patient is not exhibiting any aberrant behavior suggestive of drug diversion. The patient is not having any adverse reactions to medications. The patient is not suffering from daytime somnolence or mental acuity changes. The patient is managing opiate-induced constipation with appropriate [id number]-qrt-ewilcrc agents and dietary considerations. The patient was counseled on concern for caution with operating a motor vehicle while using opiate medications. A physical exam was performed and the patient's functional status was evaluated. All patients with back pain were advised against the bed rest greater than 4 days and were advised to return to normal activities. Pain score assessment was noted and the treatment plan was reviewed with the patient. All current medications, both prescribed and OTC were reviewed and reconciled on the electronic medical record. Tobacco screening was accomplished and smoking cessation was advised when indicated. BMI was noted and diet/exercise modification was recommended for all patients following outside normal parameters. I reviewed with the patient today their responsibilities to safeguard prescription medications, reviewed their responsibility to utilize medications only as prescribed by the physician. They are to seek and receive pain medications only from 1 physician group ( [facility]). They are to use [address] [address] PAIN MANAGEMENT CONSULTATION Name: NAYANA BOWIE Room #: REG [facility].#: [id number] Admission: 12/04/18 ������������������ Attend Phys: Sofya Olson Discharge: ������������������ Date of : 69 Report #: [id number] pharmacy and keep the clinic informed if they change pharmacies. Their responsibilities include making followup visits in a timely fashion and to avoid abrupt discontinuation of medication usage. Their responsibilities further include bringing their medications (bottles from the pharmacy with residual pills) to the visit for possible confirmation of pill counts and the patient understands it is their responsibility to submit to random drug screens to ensure both that the medications prescribed are present, and that no other controlled substances are present. All prescriptions provided today were generated electronically. PLAN: 1. We discussed treatment options with the patient today. She is doing quite well on her current regimen. She feels that since adding the tizanidine has been very beneficial in reducing her muscle spasms throughout her body in various places as well as stretching. 2. Scripts given today for [place] 10/325, #60, for today and 4-week release which places her at 20 morphine mEq according to the CDC guidelines. 3. Meloxicam 7.5 mg, #60, with 1 additional refill and tizanidine 4 mg t.i.d., #90, with 1 additional refill. 4. The patient is seen in collaboration with Dr. Krystian Hernández today, who did see the patient as well. ��������������������������������������������� <ELECTRONICALLY SIGNED> ���������������������������������������� By: Sofya Olson ��������������������������������������������� 12/07/18 0723 [id number] 1235 Sofya Olson /nt
== END ==
LOC: PAIN 06:42
DX: M54.5 Low back pain (principal); M79.18 Myalgia, other site; M19.90 Unspecified osteoarthritis, unspecified site; Z79.891 Long term (current) use of opiate analgesic; Z79.899 Other long term (current) drug therapy

== ENCOUNTER → 2019-02-05 | Outpatient (CLI) | payer OTHER ==
[~2019-02-05] VITALS: Ht 172.7 cm; Wt 113.6 kg
[2019-02-05 08:27] VITALS: BP 138/68
--- NOTE | 2019-02-05 08:39 | NUR ---
Pain Clinic Assessment: 1. History of Osteoarthritis: GENERALIZED History of Rheumatoid Arthritis: NONE 2. Height: 5 ft. 8 in. 172.7 cm. Weight: 250.4 lb. oz. 113.581 kg. Patient's BMI: 38.1 3. Vital Signs: BP: 138/68 Pulse: 73 Resp: 18 Temp: 02 Sat: 99 ECG Mon: 4. Pain Intensity: 8 5. Fall Risk: Dizziness: N Needs help standing or walking: N Fallen in the last 3 months: N Fall risk comments: \ 6. Patient on Blood Thinner: None 7. History of Hypertension: N 8. Opioid Therapy greater than 6 weeks: Y Opiate Contract Signed: 09/09/16 9. Risk Assessment Tool Provided: LOW RISK-0 10. Functional Assessment Tool: 53/ 11. Recreational Drug Use: Never Drug Type: Tobacco Use: Never Smoker Tobacco Type: Amount or Packs/day: How Many Years: Alcohol Use: No Frequency: Quant:
--- NOTE | 2019-02-08 11:23 | HPC ---
[facility] [place] [address] PAIN MANAGEMENT CONSULTATION Name: NAYANA BOWIE Room #: REG [facility] M.R.#: [id number] Admission: 02/05/19 Attend Phys: Sofya Olson Discharge: Date of : 69 Report #: [id number] THIS REPORT FOR: //name// CC: Sofya Hernández MD DATE OF SERVICE: 02/05/2019 CHIEF COMPLAINT: Low back pain and muscle spasms. HISTORY OF PRESENT ILLNESS: This is a very pleasant 53-year-old female who returns to the pain clinic today for refill of her medications that she uses to treat her pain in her lower back as well as shoulders, elbows and hands. It is a dull aching pain. Currently, she feels like she is having another flare up, though not as bad as it was this summer, rating her pain score as 8/10. It is worse with movement and activity. She feels like her back does get tight and stiff. Tizanidine and hydrocodone are very beneficial as well as heat and cold alternating. 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 She denies any problems with daytime sleepiness or constipation from these medicines. ALLERGIES: No known drug allergies. CURRENT LIST OF MEDICATIONS: [place] t.i.d. p.r.n., tizanidine 4 mg t.i.d. and meloxicam 7.5 b.i.d. PATIENT'S PQRS: 1. She has a history of osteoarthritis involving her hands, knees, shoulders and back. Denies any rheumatoid arthritis. 2. Height is 5 feet 8 inches, weight is 250 and BMI is 38. 3. Vital signs 138/68, pulse is 73, respirations 18, oxygen sat 99. Pain score 8/10. 4. Fall risk. Denies dizziness, does not need help walking or standing, has not fallen in the last 2 months. The patient is not on any blood thinners or does not take medicine for hypertension. 5. Opiate therapy is greater than 6 weeks; therefore, an opioid signed contract is on the chart. Risk assessment tool is low. Functional assessment is 53/70. 6. The patient is not a smoker. Does not use recreational drugs and does not drink alcohol. According to the prescription monitoring system, the patient is filling appropriately for her medications in a timely fashion using [facility]. There [address] [address] PAIN MANAGEMENT CONSULTATION Name: NAYANA BOWIE Room #: REG EZIO Mendes#: [id number] Admission: 02/05/19 Attend Phys: Sofya Olson Discharge: Date of : 69 Report #: [id number] is a random drug screen on the chart that is appropriate as well. PHYSICAL EXAMINATION: GENERAL: This is alert and orientated 53-year-old female who appears her stated age. She is slightly obese, rating her pain score 8/10 today. HEENT: Normocephalic, atraumatic. Extraocular eye muscles are intact. Mucous membranes are moist. NECK: Without adenopathy or JVD. MUSCULOSKELETAL: The patient walks with a slightly antalgic gait. She has muscle spasms present in the lower portion of her lumbar spine causing increased pain along the paraspinal musculature. Her upper extremity strength judged to be 5/5 in all major muscle groups. Pain has increased in her lumbar spine with flexion and extension. IMPRESSION: 1. Myofascial pain in the lower lumbar spine. 2. History of gastric bypass. 3. Axial back pain requiring complex medical management using opioids. 4. Facet arthropathy of the L4-L5 and L5-S1 dermatomal distribution. 5. Osteoarthritis involving multiple joints. 6. Complex medical management under terms of written opioid agreement. We reviewed the fact that opiate medications are being used to provide analgesia adequate to support activities of daily living, not attempting to achieve a specific pain score on the 0-10 Visual Analog Scale. The current opiate medications are providing sufficient analgesia to allow the patient to participate in activities of daily living. The patient is not exhibiting any aberrant behavior suggestive of drug diversion. The patient is not having any adverse reactions to medications. The patient is not suffering from daytime somnolence or mental acuity changes. The patient is managing opiate-induced constipation with appropriate tkdr-dso-kptidmd agents and dietary considerations. The patient was counseled on concern for caution with operating a motor vehicle while using opiate medications. A physical exam was performed and the patient's functional status was evaluated. All patients with back pain were advised against the bed rest greater than 4 days and were advised to return to normal activities. Pain score assessment was noted and the treatment plan was reviewed with the patient. All current medications, both prescribed and OTC were reviewed and reconciled on the electronic medical record. Tobacco screening was accomplished and smoking cessation was advised when indicated. BMI was noted and diet/exercise modification was recommended for all patients following outside normal parameters. I reviewed with the patient today their responsibilities to safeguard prescription medications, reviewed their responsibility to utilize medications [address] [address] PAIN MANAGEMENT CONSULTATION Name: NAYANA BOWIE Room #: REG [facility]#: [id number] Admission: 02/05/19 Attend Phys: Sofya Olson Discharge: Date of : 69 Report #: [id number] only as prescribed by the physician. They are to seek and receive pain medications only from 1 physician group ( [facility]). They are to use 1 pharmacy and keep the clinic informed if they change pharmacies. Their responsibilities include making followup visits in a timely fashion and to avoid abrupt discontinuation of medication usage. Their responsibilities further include bringing their medications (bottles from the pharmacy with residual pills) to the visit for possible confirmation of pill counts and the patient understands it is their responsibility to submit to random drug screens to ensure both that the medications prescribed are present, and that no other controlled substances are present. All prescriptions provided today were generated electronically. PLAN: 1. We discussed treatment options with the patient today. The patient feels that the trigger point injection in September was very beneficial in calming down her pain. She feels that it is slowly returning and is requesting 3 hydrocodone a day for the first month and then return back to 2 to try and kaur off a flare. She has used this method in the past and found it very beneficial. Today, we will write scripts for hydrocodone 10/325 three times a day for 1 month #90 and then return to 60 tablets for the second month. This does continue to place her at 30 morphine mEq, then decreasing to 20 well below the CDC guidelines. 2. Scripts also given for tizanidine 4 mg, a 3-month supply was sent electronically as well as meloxicam 7.5 b.i.d. for 3-month supply. 3. We did caution the patient with meloxicam use again regarding her gastric bypass. She reports no stomach discomfort currently, but she will try to decrease the use on days that she is feeling better. 4. The patient is seen in collaboration with Dr. Krystian Hernández. She will return in 3 months or earlier if need be for an injection. <ELECTRONICALLY SIGNED> By: Sofya Olson 02/08/19 [id number] 0940 Sofya Olson /nt
== END ==
LOC: PAIN 06:42
DX: M54.5 Low back pain (principal); M89.49 Other hypertrophic osteoarthropathy, multiple sites; M12.88 Other specific arthropathies, not elsewhere classified, other specified site; Z79.891 Long term (current) use of opiate analgesic

== ENCOUNTER → 2019-04-07 | Outpatient (CLI) | payer OTHER ==
[~2019-04-07] VITALS: Ht 172.7 cm; Wt 117.5 kg
[2019-04-07 08:15] VITALS: BP 165/95
--- NOTE | 2019-04-07 08:18 | NUR ---
Pain Clinic Assessment: 1. History of Osteoarthritis: GENERALIZED History of Rheumatoid Arthritis: NONE 2. Height: 5 ft. 8 in. 172.7 cm. Weight: 259.0 lb. oz. 117.482 kg. Patient's BMI: 39.4 3. Vital Signs: BP: 165/95 Pulse: 68 Resp: 14 Temp: 02 Sat: 98 ECG Mon: 4. Pain Intensity: 7-8 5. Fall Risk: Dizziness: N Needs help standing or walking: N Fallen in the last 3 months: N Fall risk comments: \ 6. Patient on Blood Thinner: None 7. History of Hypertension: N 8. Opioid Therapy greater than 6 weeks: Y Opiate Contract Signed: 09/09/16 9. Risk Assessment Tool Provided: LOW RISK-0 10. Functional Assessment Tool: 53/ 11. Recreational Drug Use: Never Drug Type: Tobacco Use: Never Smoker Tobacco Type: Amount or Packs/day: How Many Years: Alcohol Use: No Frequency: Quant:
--- NOTE | 2019-04-08 08:17 | HPC ---
[facility] [address] [place] [address] PAIN MANAGEMENT CONSULTATION Name: NAYANA BOWIE Room #: REG [facility]..#: [id number] Admission: 04/07/19 Attend Phys: Sofya Olson Discharge: Date of : 69 Report #: [id number] THIS REPORT FOR: //name// CC: Sofya Hernández MD DATE OF SERVICE: 04/07/2019 CHIEF COMPLAINT: Low back pain. HISTORY OF PRESENT ILLNESS: This is a pleasant 54-year-old female who returns to the pain clinic today for refill of her medications. She was reporting her pain score at 8/10 today. She feels that it is mostly centrally located in her low back, knees and hips. She does occasionally have shoulder pain and neck pain as well. It is a dull aching, grinding pain, worse with any movement and activity and walking. She feels that the medications are somewhat beneficial in controlling her pain. She did fine taking one extra hydrocodone a day for the first month when she was having a flare was beneficial as well as using heat and ice. The patient does complain of some constipation that is relieved by taking Senokot. She does not feel that that is a normal occurrence. 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 The patient is here today for refills of her medications. ALLERGIES: No known drug allergies. CURRENT LIST OF MEDICATIONS: Hydrocodone 10/325 b.i.d., meloxicam 7.5 b.i.d., Zanaflex p.r.n., Senokot p.r.n. PQRS: 1. She has osteoarthritis in multiple joints of hands, knees, shoulders, back and hips. Denies any rheumatoid arthritis. 2. Height is 5 feet 8 inches, weight is 259, BMI is 39.4. This is a 9-pound increase in her weight since our last visit 2 months ago. 3. Vital signs: Blood pressure 165/95, pulse is 68, respirations 14, and oxygen sat is 98. 4. Pain score is 7-8. 5. Denies dizziness, does not need help walking or standing, has not fallen in the last 3 months. 6. The patient is not on any blood thinners or hypertensive medicines. Opioid therapy is greater than 6 weeks; therefore, an opioid signed contract is on the chart. Risk assessment tool is low. Functional assessment is 53/70. 7. Recreational drug use, she denies. She is not a smoker and does not drink alcohol. According to the prescription monitoring system, the patient is due to fill her medications today. She is filling in a timely fashion. Her morphine [address] [address] PAIN MANAGEMENT CONSULTATION Name: NAYANA BOWIE MARIE Room #: REG CL Cinthya#: [id number] Admission: 04/07/19 Attend Phys: Sofya Olson Discharge: Date of : 69 Report #: [id number] mEq per day is 20. PHYSICAL EXAMINATION: GENERAL: This is alert and orientated 54-year-old who is obese, rating her pain score at 8/10 today. HEENT: Normocephalic, atraumatic. Extraocular eye muscles are intact. Mucous membranes are moist. NECK: She has tenderness in her cervical spine, but has no JVD or adenopathy. MUSCULOSKELETAL: She walks with an antalgic gait. She complains of tenderness in her bilateral hips and knees. She has tenderness along the lumbosacral paraspinal musculature. Lower extremity strength judged to be 5/5 with all major muscle groups. IMPRESSION: 1. Myofascial pain in her lumbar spine. 2. History of gastric bypass. 3. Axial back pain requiring complex medical management using opioids. 4. Facet arthroscopy of the L4, L5, S1 dermatomal distribution. 5. Osteoarthritis involving multiple joints. We reviewed the fact that opiate medications are being used to provide analgesia adequate to support activities of daily living, not attempting to achieve a specific pain score on the 0-10 Visual Analog Scale. The current opiate medications are providing sufficient analgesia to allow the patient to participate in activities of daily living. The patient is not exhibiting any aberrant behavior suggestive of drug diversion. The patient is not having any adverse reactions to medications. The patient is not suffering from daytime somnolence or mental acuity changes. The patient is managing opiate-induced constipation with appropriate [id number]-oll-jwtokpe agents and dietary considerations. The patient was counseled on concern for caution with operating a motor vehicle while using opiate medications. A physical exam was performed and the patient's functional status was evaluated. All patients with back pain were advised against the bed rest greater than 4 days and were advised to return to normal activities. Pain score assessment was noted and the treatment plan was reviewed with the patient. All current medications, both prescribed and OTC were reviewed and reconciled on the electronic medical record. Tobacco screening was accomplished and smoking cessation was advised when indicated. BMI was noted and diet/exercise modification was recommended for all patients following outside normal parameters. I reviewed with the patient today their responsibilities to safeguard prescription medications, reviewed their responsibility to utilize medications only as prescribed by the physician. They are to seek and receive pain medications only from 1 physician group ([facility]). They are to use [address] [place], [place] [address] [address] PAIN MANAGEMENT CONSULTATION Name: NAYANA BOWIE Room #: REG [facility]..#: [id number] Admission: 04/07/19 Attend Phys: Sofya Olson Discharge: Date of : 69 Report #: [id number] pharmacy and keep the clinic informed if they change pharmacies. Their responsibilities include making followup visits in a timely fashion and to avoid abrupt discontinuation of medication usage. Their responsibilities further include bringing their medications (bottles from the pharmacy with residual pills) to the visit for possible confirmation of pill counts and the patient understands it is their responsibility to submit to random drug screens to ensure both that the medications prescribed are present, and that no other controlled substances are present. All prescriptions provided today were generated electronically. PLAN: 1. We discussed treatment options with the patient today. I explained to the patient that we will be prescribing her 60 tablets of her hydrocodone again, we had increased it for 1 month only to try to prevent a flare in her musculature by encouraging her to be more active and taking her muscle relaxants as well as at one additional pain pill for a short time. We will return to the 60 tablets per month. The patient verbalizes understanding. Scripts given today for hydrocodone 10/325, 60 for today and 4-week release. 2. The patient is encouraged to be more active and exercise when she is able. She has had gastric bypass in the past, but over the last 2 months, she has gained 9 pounds. The patient verbalizes understanding. I did talk about how this activity and stretching and exercises does help relieve myofascial pain and pain in general. 3. The patient is seen today in collaboration with Dr. Krystian Hernández. The patient will return in 2 months as needed. <ELECTRONICALLY SIGNED> By: Sofya Olson 04/08/19 0817 [id number] [id number] Sofya Olson /nt
== END ==
LOC: PAIN 06:44
DX: Z76.0 Encounter for issue of repeat prescription (principal); M54.5 Low back pain; M19.91 Primary osteoarthritis, unspecified site; Z79.891 Long term (current) use of opiate analgesic; Z79.899 Other long term (current) drug therapy

== ENCOUNTER → 2019-06-09 | Outpatient (CLI) | payer OTHER ==
[~2019-06-09] VITALS: Ht 172.7 cm; Wt 116.6 kg
[2019-06-09 13:15] VITALS: BP 162/85
--- NOTE | 2019-06-09 13:31 | NUR ---
Pain Clinic Assessment: 1. History of Osteoarthritis: GENERALIZED History of Rheumatoid Arthritis: NONE 2. Height: 5 ft. 8 in. 172.7 cm. Weight: 257.0 lb. oz. 116.575 kg. Patient's BMI: 39.1 3. Vital Signs: BP: 162/85 Pulse: 73 Resp: 16 Temp: 02 Sat: 100 ECG Mon: 4. Pain Intensity: 8 5. Fall Risk: Dizziness: N Needs help standing or walking: N Fallen in the last 3 months: N Fall risk comments: \ 6. Patient on Blood Thinner: None 7. History of Hypertension: N 8. Opioid Therapy greater than 6 weeks: Y Opiate Contract Signed: 09/09/16 9. Risk Assessment Tool Provided: LOW RISK-0 10. Functional Assessment Tool: / 11. Recreational Drug Use: Never Drug Type: Tobacco Use: Never Smoker Tobacco Type: Amount or Packs/day: How Many Years: Alcohol Use: No Frequency: Quant:
--- NOTE | 2019-06-18 08:21 | HPC ---
[facility] [place] [address] PAIN MANAGEMENT CONSULTATION Name: NAYANA BOWIE Room #: REG EZIO Chaudhari.#: [id number] Admission: 06/09/19 Attend Phys: Sabi Hernández MD Discharge: Date of : 69 Report #: [id number] THIS REPORT FOR: cc: Anita Chicas DNP, Mary E. DNP Brown, N. Wayne MD ~ CC: Anita Hernández DATE OF SERVICE: 06/09/2019 CHIEF COMPLAINT: Low back pain. HISTORY: The patient is a 54-year-old female who has been followed in the pain clinic. As you may recall, she has a history of chronic back pain. She has pain in the lumbar area. She has undergone trigger point injections in the past and found that they were quite beneficial. She would like to proceed with trigger point injections at the next visit. She has returned today for renewal of her medications. She has pain in her lower back area. There is pain and discomfort in her neck. She has bilateral elbow discomfort, has bilateral shoulder pain and bilateral knee pain. She feels that her medications are helpful. She feels that an increase in medications might be efficacious. She continues to work on a daily basis. Activity such as standing, walking, moving can be problematic. She notes some improvement in her pain when she repositions as well as when she uses hot and cold. Rates her pain as an 8/10 at this juncture. Her pain has been problematic for some time. It dates back to 2010. Since 2016, the pain in her back, hands, knees, and elbows have been more problematic. ALLERGIES: No known drug allergies. CURRENT MEDICATIONS: Hydrocodone 10/325 1 p.o. b.i.d., Meloxicam 7.5 mg 1 p.o. t.i.d., tizanidine 4 mg t.i.d. PAIN CLINIC ASSESSMENT AND PQRS: 1. The patient has a history of osteoarthritis involving her knees, hands, shoulders and back. She is not being treated for rheumatoid arthritis. 2. Height 5 feet 8 inches, weight 258 pounds, BMI is 39.1. 3. Vital signs: Blood pressure is 162/85, pulse 73, respiratory rate 16, room air saturation 100%. 4. Pain intensity, 10/31. 5. Fall history. The patient has not fallen in the last 3 months. 6. Blood thinner. The patient is not on a blood thinning medication. 7. Hypertension. The patient is not being treated for hypertension. 8. Opioids greater than 6 weeks. The patient received medication from one source, pain clinic. [address] [address] PAIN MANAGEMENT CONSULTATION Name: JAMIRNAYANA MARIE Room #: REG CL [facility].#: [id number] Admission: 06/09/19 Attend Phys: Sabi Hernández MD Discharge: Date of : 69 Report #: [id number] 9. Risk assessment tool, low for opioid use. 10. Functional assessment tool, 53/70. 11. Recreational drug use. The patient denies. 12. Tobacco. The patient never smoked. 13. Alcohol. The patient denies frequent use of alcoholic beverages. PHYSICAL EXAMINATION: GENERAL: The patient is a well-developed, well-nourished, black female. Appears her stated age. She is alert and oriented x 3. Her affect is appropriate. Speech is fluent. HEENT: Normocephalic, atraumatic. Extraocular eye muscles intact. Sclerae nonicteric. Mucous membranes are moist. NECK: Without adenopathy or JVD. HEART: Regular rate. ABDOMEN: Nontender. MUSCULOSKELETAL: Upper extremity muscle strength judged to be 5-/5 for the major muscle groups. The patient does complain of pain and discomfort involving her shoulders bilaterally, elbows, neck, low back, and knees. IMPRESSION: 1. Myofascial pain as described above with low back pain. 2. History of facet joint and low back discomfort. 3. Hypertension. 4. History of colon problems. 5. Osteoarthritis involving numerous joints. 6. History of gastric bypass surgery. 7. Axial back pain requiring complex medications using opioids. 8. Facet arthrosis at L4-L5 and L5-S1. RECOMMENDATIONS: We discussed treatment options with the patient. At this juncture, we will continue with her medications. We will increase the patient's opioid medications from 10 mg b.i.d. to 10 mg b.i.d. with the occasional use of a 10 mg hydrocodone at times of exacerbation. We will have the patient continue with tizanidine 4 mg 1 p.o. t.i.d. The patient states she was taking 4 tablets daily. We would recommend that she takes 3 tablets daily. A script for this has been rewritten. The patient has some problems with nonsteroidal anti-inflammatory medications. She will refrain from using those. She has had a gastric bypass. We will have the patient return on the next visit. At that time, we will undergo trigger point injections to the affected areas in her low back. She did have trigger point injections in the past. Found that they were quite beneficial and she would like to proceed with that mode of treatment at her next visit. [address] [address] PAIN MANAGEMENT CONSULTATION Name: NAYANA BOWIE Room #: REG [facility].#: [id number] Admission: 06/09/19 Attend Phys: Sabi Hernández MD Discharge: Date of : 69 Report #: [id number] We would like to thank you for letting us participate in her care. We hope she continues to improve. <ELECTRONICALLY SIGNED> By: Sabi Hernández MD 06/18/19 0821 [id number] 2151 Sabi Hernández MD /PMT
== END ==
LOC: PAIN 06:45
DX: M54.5 Low back pain (principal); M19.90 Unspecified osteoarthritis, unspecified site; M79.18 Myalgia, other site; M47.816 Spondylosis without myelopathy or radiculopathy, lumbar region

== ENCOUNTER → 2019-08-11 | Outpatient (CLI) | payer OTHER ==
[~2019-08-11] VITALS: Ht 172.7 cm; Wt 118.4 kg
[2019-08-11 08:36] VITALS: BP 126/72
--- NOTE | 2019-08-11 08:40 | NUR ---
Pain Clinic Assessment: 1. History of Osteoarthritis: GENERALIZED History of Rheumatoid Arthritis: NONE 2. Height: 5 ft. 8 in. 172.7 cm. Weight: 261.0 lb. oz. 118.389 kg. Patient's BMI: 39.7 3. Vital Signs: BP: 126/72 Pulse: 82 Resp: 14 Temp: 02 Sat: 97 ECG Mon: 4. Pain Intensity: 9 5. Fall Risk: Dizziness: N Needs help standing or walking: N Fallen in the last 3 months: N Fall risk comments: \ 6. Patient on Blood Thinner: None 7. History of Hypertension: N 8. Opioid Therapy greater than 6 weeks: Y Opiate Contract Signed: 09/09/16 9. Risk Assessment Tool Provided: LOW RISK-0 10. Functional Assessment Tool: / 11. Recreational Drug Use: Never Drug Type: Tobacco Use: Never Smoker Tobacco Type: Amount or Packs/day: How Many Years: Alcohol Use: No Frequency: Quant:
--- NOTE | 2019-09-17 09:39 | HPC ---
[facility] [place] [address] [place] [address] PAIN MANAGEMENT CONSULTATION Name: NAYANA BOWIE Room #: REG EZIO Chaudhari#: [id number] Admission: 08/11/19 Attend Phys: Sabi Hernández MD Discharge: Date of : 69 Report #: [id number] THIS REPORT FOR: cc: Anita Chicas DNP, Mary E. DNP Brown, N. Wayne MD ~ CC: Anita Hernández DATE OF SERVICE: 08/11/2019 CHIEF COMPLAINT: Back pain and discomfort with movement in the low back area. HISTORY: The patient is a 54-year-old female who has been seen in the pain clinic in the past for discomfort in her low back area. She rates her pain as a 9/10. She has noticed an increasing amount of pain in the low back area. She has been told that she has arthritis in the lower portion of her back. She underwent injections in the low back area about 9 months ago that has provided significant benefit. Pain is quite problematic in the midline spinal area and paraspinous area of the low back. Activities such as prolonged standing, walking, moving, bending, lumbar flexion and extension, and left and right lateral rotation all cause increased pain. She has significant amount of arthrosis in the area of the facet joints. ALLERGIES: No known drug allergies. CURRENT MEDICATIONS: Hydrocodone 10/325 one p.o. b.i.d., Meloxicam 7.5 mg 1 p.o. t.i.d., and tizanidine 4 mg 1 p.o. t.i.d. PAIN CLINIC ASSESSMENT/PQRS: 1. The patient has some osteoarthritis in lower portion of her back with back pain. She is not being treated for rheumatoid arthritis. 2. Height 5 feet 8 inches, weight 261 pounds, BMI is 39.4. 3. Vital signs: Blood pressure 126/72, heart rate 82, respiratory rate 14, room air saturation 97%. 4. Pain intensity 12/01. 5. Fall history: The patient has not fallen in the last 3 months. 6. Blood thinner. The patient is not on blood thinning medications. 7. Hypertension. The patient is not being treated for hypertension. 8. Opioids greater than 6 weeks. The patient receives medications from the pain clinic for chronic pain. 9. Risk assessment tool, low for opioid use. 10. Functional assessment tool, 53/70. 11. Recreational drug use. The patient denies. 12. Tobacco: The patient has never smoked. 13. Alcohol: The patient denies frequent [place] [address] PAIN MANAGEMENT CONSULTATION Name: NAYANA BOWIE MARIE Room #: REG [facility] Cinthya#: [id number] Admission: 08/11/19 Attend Phys: Sabi Hernández MD Discharge: Date of : 69 Report #: [id number] PHYSICAL EXAMINATION: GENERAL: The patient is a well-developed, well-nourished black female, appears her stated age. She is alert and oriented x 3. Her affect is appropriate. Speech is fluent. HEENT: Normocephalic, atraumatic. Extraocular eye muscles intact. Sclerae nonicteric. Mucous membranes are moist. NECK: Without adenopathy. HEART: Regular rate. MUSCULOSKELETAL: Upper extremity muscle strength judged to be 5/5 for the major muscle groups in the upper extremity. The patient has pain and discomfort in the lower portion of her back in the area of the L4-L5 and L5 areas, particularly in the paraspinous areas. Palpation in these areas are painful and reproduce her discomfort. Lumbar extension and left and right lateral rotation cause increased pain and discomfort. The patient noted some pain in the posterior thighs with referral pattern from facet joints. IMPRESSION: 1. Lumbar facet joint pain with pain referred to the posterior thighs as well as the lumbar area and some discomfort in the lumbar gluteal areas. 2. Hypertension. 3. History of colon problems. 4. Osteoarthritis involving numerous joints. 5. History of gastric bypass surgery. 6. Axial back pain being treated with complex medications using opioids. 7. Facet arthrosis at L4-L5 and L5-S1. RECOMMENDATIONS: We discussed treatment options with the patient. The patient underwent periarticular injections with steroid and local anesthetic about 8 months ago. She noticed an improvement in her pain. She has returned today with a recurrence of her pain and discomfort. We would like to proceed with facet joint injections in the L4-L5 and L5-S1 areas. Hopefully, this will continue to help with the patient's pain. Should her pain continues to be problematic, we will proceed with medial branch blocks to help determine the pain generators. We would then consider proceeding with radiofrequency neurotomy to help reduce the pain. We explained the procedure to the patient. The patient appears to be a candidate for radiofrequency neurotomy. This could provide longer lasting pain and interruptions of signals from the medial branch nerves. She will follow up in the future, at which time we will proceed with the facet joint injections. [facility] [address] [place] [address] PAIN MANAGEMENT CONSULTATION Name: NAYANA BOWIE Room #: CHARLEEN Mendes#: [id number] Admission: 08/11/19 Attend Phys: Sabi Hernández MD Discharge: Date of : 69 Report #: [id number] We would like to thank you for letting us participate in her care. We hope she continues to improve. <ELECTRONICALLY SIGNED> By: Sabi Hernández MD 09/17/19 0939 0059 0211 Sabi Hernández MD /[facility]
== END ==
LOC: PAIN 06:58
PROVIDERS: ATTEND Anesthesiology Pain Medicine
DX: M47.817 Spondylosis without myelopathy or radiculopathy, lumbosacral region (principal); I10 Essential (primary) hypertension; M19.90 Unspecified osteoarthritis, unspecified site; F11.20 Opioid dependence, uncomplicated; Z87.19 Personal history of other diseases of the digestive system; Z87.39 Personal history of other diseases of the musculoskeletal system and connective tissue; Z79.899 Other long term (current) drug therapy

== ENCOUNTER → 2019-10-08 | Outpatient (CLI) | payer OTHER ==
[~2019-10-08] VITALS: Ht 172.7 cm; Wt 116.3 kg
[2019-10-08 08:36] VITALS: BP 152/83
--- NOTE | 2019-10-08 08:43 | NUR ---
Pain Clinic Assessment: 1. History of Osteoarthritis: GENERALIZED History of Rheumatoid Arthritis: NONE 2. Height: 5 ft. 8 in. 172.7 cm. Weight: 256.4 lb. oz. 116.303 kg. Patient's BMI: 39.0 3. Vital Signs: BP: 152/83 Pulse: 81 Resp: 16 Temp: 02 Sat: 98 ECG Mon: 4. Pain Intensity: 8 5. Fall Risk: Dizziness: N Needs help standing or walking: N Fallen in the last 3 months: N Fall risk comments: \ 6. Patient on Blood Thinner: None 7. History of Hypertension: N 8. Opioid Therapy greater than 6 weeks: Y Opiate Contract Signed: 09/09/16 9. Risk Assessment Tool Provided: LOW RISK-0 10. Functional Assessment Tool: 53/ 11. Recreational Drug Use: Never Drug Type: Tobacco Use: Never Smoker Tobacco Type: Amount or Packs/day: How Many Years: Alcohol Use: No Frequency: Quant:
--- NOTE | 2019-10-25 20:39 | HPC ---
[facility] [place] [address] PAIN MANAGEMENT CONSULTATION Name: NAYANA BOWIE Room #: REG EZIO Chaudhari.#: [id number] Admission: 10/08/19 Attend Phys: Sabi Hernández MD Discharge: Date of : 69 Report #: [id number] THIS REPORT FOR: cc: Anita Chicas DNP, Mary E. DNP Brown, N. Wayne MD ~ CC: Anita Hernández DATE OF SERVICE: 10/08/2019 CHIEF COMPLAINT: Continued pain in the low back area. HISTORY: The patient is a 54-year-old female, who has been followed in the Pain Clinic for chronic pain. She has returned today for renewal of her medications and she would also like to discuss the possibility of facet joint injections or with considerations of progressing to medial branch block. The patient is a 54-year-old female who has continued to have pain, which has been quite problematic. She has pain in the low back area. Pain is more problematic with certain movements. Lumbar extension, left and right lateral bending can cause increased discomfort. She does work and finds that prolonged standing, moving, bending, lumbar flexion, extension, left and right lateral rotation, all cause significant amounts of pain and discomfort and becoming more and more problematic. She also has a history of facet joint problems. ALLERGIES: No known drug allergies. CURRENT MEDICATIONS: Hydrocodone 10/325 one p.o. b.i.d., Meloxicam 7.5 mg 1 p.o. t.i.d., tizanidine 4 mg 1 p.o. t.i.d. PAIN CLINIC ASSESSMENT AND PQRS: 1. History of osteoarthritis generalized in the back area. The patient is not being treated for rheumatoid arthritis. 2. Height 5 feet 8 inches, weight 256 pounds, BMI is 39.0. 3. Vital signs: Blood pressure 152/83, pulse 81, respiratory rate 16, room air saturation is 98%. 4. Pain intensity: 8/10. 5. Fall history: The patient has not fallen in the last 3 months. 6. Blood thinner: The patient is not on a blood thinning medication. 7. Hypertension: The patient is not being treated for hypertension. 8. Opioids greater than 6 weeks: The patient receives medications from pain clinic. 9. Risk assessment tool: Zero and low for opioid use. 10. Functional assessment tool: 53/70. 11. Recreational drug use: The patient denies. [address] [address] PAIN MANAGEMENT CONSULTATION Name: NAYANA BOWIE Room #: REG CL JaspreetEva#: [id number] Admission: 10/08/19 Attend Phys: Sabi Hernández MD Discharge: Date of : 69 Report #: [id number] 12. Tobacco: The patient has never smoked. 13. Alcohol: The patient denies frequent use of alcohol. PHYSICAL EXAMINATION: GENERAL: The patient is a well-developed, well-nourished, black female. Appears her stated age. She is alert and oriented x 3. Her affect is appropriate. Speech is fluent. HEENT: Normocephalic, atraumatic. Extraocular eye muscles intact. Sclerae nonicteric. Mucous membranes are moist. NECK: Without adenopathy or JVD. HEART: Regular rate. ABDOMEN: Nontender. The patient is wearing a mask. MUSCULOSKELETAL: Upper extremity muscle strength is judged to be 5/5 for the major muscle groups in the upper extremity. The patient has some pain and discomfort in the lumbar area in the L4-L5 area. She has pain in the paraspinous muscle areas. Palpation in these areas are painful and reproduce her discomfort. Lumbar extension, left and right lateral rotation increase pain and discomfort. The patient has pain in the posterior thighs and has discomfort in referred pattern from the facets at L4-L5 and L5-S1. IMPRESSION: 1. Lumbar facet joint pain and referred pain to the posterior thighs as well as the lumbar area with some discomfort in the lumbar gluteal areas. 2. Hypertension. 3. History of colon problems. 4. Osteoarthritis involving numerous joints. 5. History of gastric bypass surgery. 6. Axial back pain, being treated with complex medical management using opioids. 7. Facet arthrosis at L4-L5 and L5-S1. RECOMMENDATIONS: We discussed treatment options with the patient. At this juncture, the patient's medications have been renewed. She has noticed that her pain has become more and more problematic. She would like to proceed with facet joint injections in the L4-L5 and L5-S1 area. We will proceed with facet joint injections with the thoughts of proceeding with medial branch block to help determine the pain generators. The patient would like to consider radiofrequency lesioning in the future should the pain continue to be problematic. The patient appears to be a candidate for radiofrequency neurotomy. We have explained to the patient the mechanism of this procedure, it would provide longer lasting pain relief by interrupting the signals from the medial branch nerves. The patient will follow up in the future, at which time, we will proceed with facet joint injections. [address] [address] PAIN MANAGEMENT CONSULTATION Name: NAYANA BOWIE Room #: CHARLEEN Mendes#: [id number] Admission: 10/08/19 Attend Phys: Sabi Hernández MD Discharge: Date of : 69 Report #: [id number] We would like to thank you for letting us participate in her care. We hope she continues to improve. <ELECTRONICALLY SIGNED> By: Sabi Hernández MD 10/25/19 [id number] Sabi Hernández MD /nt
== END ==
LOC: PAIN 10-06 09:29
PROVIDERS: ATTEND Anesthesiology Pain Medicine
DX: M54.5 Low back pain (principal); I10 Essential (primary) hypertension; M19.90 Unspecified osteoarthritis, unspecified site; F11.20 Opioid dependence, uncomplicated; M47.817 Spondylosis without myelopathy or radiculopathy, lumbosacral region; Z85.038 Personal history of other malignant neoplasm of large intestine; Z98.84 Bariatric surgery status; Z79.899 Other long term (current) drug therapy

== ENCOUNTER → 2019-12-22 | Outpatient (CLI) | payer OTHER ==
[~2019-12-22] VITALS: Ht 172.7 cm; Wt 117.0 kg
--- NOTE | ~2019-12-22 | HPC ---
[facility] [place] [address] [address] [place] [address] PAIN MANAGEMENT CONSULTATION Name: NAYANA BOWIE Room #: REG EZIO Chaudhari.#: [id number] Admission: 12/22/19 Attend Phys: Sabi Hernández MD Discharge: Date of : 69 Report #: [id number] THIS REPORT FOR: cc: Anita Chicas DNP, Mary E. DNP Brown, N. Wayne MD ~ CC: Anita Hernández DATE OF SERVICE: 12/22/2019 CHIEF COMPLAINT: "I had COVID-19." HISTORY: The patient is a 54-year-old female, who has been followed in the Pain Clinic because of chronic pain. She states that she had COVID-19. She developed this in early October. She states her returned home after working with a coworker who had COVID-19. She was infected. Her parents have been infected as well. Her father is recently discharged from the hospital. He had pneumonia and emphysema. Her mother has had the problem as well. Her children are doing reasonably well. She is quite stressed because of all the activity. 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 She recently underwent a steroid injection. She still has some problems with breathing. She still notes some shortness of breath. She has returned to the Pain Clinic for renewal of her medications. ALLERGIES: No known drug allergies. CURRENT MEDICATIONS: Hydrocodone 10/325 one p.o. b.i.d., meloxicam 7.5 mg 1 tab daily, and tizanidine 4 mg t.i.d. PAIN CLINIC ASSESSMENT AND PQRS: 1. The patient has some arthritic changes in her back. She is not being treated for rheumatoid arthritis. 2. Height 5 feet 8 inches, weight 258 pounds, BMI 39. 3. Vital signs: Blood pressure 150/72, pulse 78, respiratory rate 16, room air saturation 98%. 4. Pain intensity: 8/10. 5. Fall risk: The patient has not fallen in the last 3 months. 6. Blood thinner: The patient is not on a blood thinning medication. 7. Hypertension: The patient is not being treated for hypertension. 8. Opioids greater than 6 weeks: The patient receives medications from the Pain Clinic. 9. Risk assessment tool: Low for opioid use. 10. Functional assessment tool: 53/70. 11. Recreational drug use: The patient denies. 12. Alcohol: The patient denies. [address] [address] PAIN MANAGEMENT CONSULTATION Name: NAYANA BOWIE Room #: REG CLI [facility]#: [id number] Admission: 12/22/19 Attend Phys: Sabi Hernández MD Discharge: Date of : 69 Report #: [id number] 13. Tobacco: The patient denies. PHYSICAL EXAMINATION: GENERAL: The patient is a well-developed, well-nourished, black female. She appears her stated age. She is alert and oriented x 3. Her affect is appropriate. Speech is fluent. She feels mentally exhausted. HEENT: Normocephalic, atraumatic. Extraocular eye muscles intact. The patient is wearing a facial covering. NECK: Without adenopathy or JVD. HEART: Regular rate. ABDOMEN: Nontender. LUNGS: The patient reports some perception of shortness of breath. MUSCULOSKELETAL: Upper extremity muscle strength is judged to be 5-/5 for the major muscle groups in the upper extremity. The patient states that she feels worn out and exhausted. The patient has pain and discomfort in the lower portion of her back with pain that radiates down into mid portion of her back. She notes some increased pain and discomfort with flexion, extension, left and right lateral rotation. IMPRESSION: 1. Lumbar facet joint arthritis with posterior thigh pain and some discomfort in the lumbar gluteal area. 2. Hypertension. 3. History of colon problems. 4. Osteoarthritis involving numerous joints. 5. History of gastric bypass surgery. 6. Axial pain, being treated with complex medical management using opioids. 7. Facet arthrosis at L4-L5 and L5-S1. RECOMMENDATIONS: We discussed treatment options with the patient. The patient feels that she is getting over the COVID-19. She still has mental exhaustion. Family members are still being infected. Her mother and father still are being treated for the COVID-19. She feels that her medications have been helpful. A script for hydrocodone 10/325 one p.o. t.i.d. has been provided for the next 2 months. The patient will also continue with meloxicam. She will use tizanidine for muscle spasms. She will call us if she has any problems. She feels again that she has a significant weight on her shoulders and that she has to home school her kids. We provided a website that might be helpful. We would like to thank you for letting us participate in her care. We hope she continues to improve. By: [id number] Sabi Hernández MD /lonnie
[2019-12-22 08:39] VITALS: BP 150/72
--- NOTE | 2019-12-22 08:50 | NUR ---
Pain Clinic Assessment: 1. History of Osteoarthritis: GENERALIZED History of Rheumatoid Arthritis: NONE 2. Height: 5 ft. 8 in. 172.7 cm. Weight: 258.0 lb. oz. 117.028 kg. Patient's BMI: 39.2 3. Vital Signs: BP: 150/72 Pulse: 78 Resp: 16 Temp: 02 Sat: 98 ECG Mon: 4. Pain Intensity: 8 5. Fall Risk: Dizziness: N Needs help standing or walking: N Fallen in the last 3 months: N Fall risk comments: \ 6. Patient on Blood Thinner: None 7. History of Hypertension: N 8. Opioid Therapy greater than 6 weeks: Y Opiate Contract Signed: 09/09/16 9. Risk Assessment Tool Provided: LOW RISK-0 10. Functional Assessment Tool: / 11. Recreational Drug Use: Never Drug Type: Tobacco Use: Never Smoker Tobacco Type: Amount or Packs/day: How Many Years: Alcohol Use: No Frequency: Quant:
== END ==
LOC: PAIN 06:44
PROVIDERS: ATTEND Anesthesiology Pain Medicine
DX: M47.817 Spondylosis without myelopathy or radiculopathy, lumbosacral region (principal); G89.29 Other chronic pain; I10 Essential (primary) hypertension; F11.20 Opioid dependence, uncomplicated; Z87.19 Personal history of other diseases of the digestive system; Z98.84 Bariatric surgery status; Z79.899 Other long term (current) drug therapy

== ENCOUNTER → 2020-01-13 | Outpatient (CLI) | payer OTHER | LOC: RAD 13:41 | PROVIDERS: ATTEND Nurse Practitioner | DX: R53.83 Other fatigue (principal); R06.00 Dyspnea, unspecified ==

== ENCOUNTER → 2020-05-31 | Outpatient (CLI) | payer OTHER ==
[~2020-05-31] VITALS: Ht 172.7 cm; Wt 122.2 kg
[~2020-05-31] MED LIST changes: +HYDROCODON-ACE1 EAC5 PO
[2020-05-31 08:02] VITALS: BP 131/74
--- NOTE | 2020-05-31 08:05 | NUR ---
Pain Clinic Assessment: 1. History of Osteoarthritis: GENERALIZED History of Rheumatoid Arthritis: NONE 2. Height: 5 ft. 8 in. 172.7 cm. Weight: 269.4 lb. oz. 122.199 kg. Patient's BMI: 41.0 3. Vital Signs: BP: 131/74 Pulse: 70 Resp: 20 Temp: 02 Sat: 97 ECG Mon: 4. Pain Intensity: 8 5. Fall Risk: Dizziness: N Needs help standing or walking: N Fallen in the last 3 months: Y Fall risk comments: \ 6. Patient on Blood Thinner: None 7. History of Hypertension: N 8. Opioid Therapy greater than 6 weeks: Y Opiate Contract Signed: 09/09/16 9. Risk Assessment Tool Provided: LOW RISK-0 10. Functional Assessment Tool: 11. Recreational Drug Use: Never Drug Type: Tobacco Use: Never Smoker Tobacco Type: Amount or Packs/day: How Many Years: Alcohol Use: No Frequency: Quant:
== END ==
LOC: PAIN 06:44
PROVIDERS: ATTEND Anesthesiology Pain Medicine
DX: M47.817 Spondylosis without myelopathy or radiculopathy, lumbosacral region (principal); I10 Essential (primary) hypertension; M19.90 Unspecified osteoarthritis, unspecified site; F11.20 Opioid dependence, uncomplicated; Z98.84 Bariatric surgery status; Z86.16 Personal history of COVID-19; Z88.8 Allergy status to other drugs, medicaments and biological substances; Z79.899 Other long term (current) drug therapy

== ENCOUNTER → 2020-11-01 | Outpatient (CLI) | payer OTHER ==
[~2020-11-01] VITALS: Ht 172.7 cm; Wt 125.6 kg
[2020-11-01 11:01] VITALS: BP 134/80
--- NOTE | 2020-11-01 11:26 | NUR ---
Pain Clinic Assessment: 1. History of Osteoarthritis: GENERALIZED History of Rheumatoid Arthritis: NONE 2. Height: 5 ft. 8 in. 172.7 cm. Weight: 277.0 lb. oz. 125.647 kg. Patient's BMI: 42.1 3. Vital Signs: BP: 134/80 Pulse: 93 Resp: 18 Temp: 02 Sat: 100 ECG Mon: 4. Pain Intensity: 7 TO 10 5. Fall Risk: Dizziness: N Needs help standing or walking: N Fallen in the last 3 months: N Fall risk comments: \ 6. Patient on Blood Thinner: None 7. History of Hypertension: N 8. Opioid Therapy greater than 6 weeks: Y Opiate Contract Signed: 09/09/16 9. Risk Assessment Tool Provided: LOW RISK-0 10. Functional Assessment Tool: 53/ 11. Recreational Drug Use: Never Drug Type: Tobacco Use: Never Smoker Tobacco Type: Amount or Packs/day: How Many Years: Alcohol Use: No Frequency: Quant:
== END ==
LOC: PAIN 08-04 07:06
PROVIDERS: ATTEND Anesthesiology Pain Medicine
DX: Z76.0 Encounter for issue of repeat prescription (principal); M54.5 Low back pain; M25.511 Pain in right shoulder; M25.512 Pain in left shoulder; R53.1 Weakness; M25.561 Pain in right knee; M25.562 Pain in left knee; Z86.16 Personal history of COVID-19; Z79.899 Other long term (current) drug therapy; Z79.891 Long term (current) use of opiate analgesic

== ENCOUNTER → 2020-12-29 | Outpatient (CLI) | payer OTHER ==
[~2020-12-29] VITALS: Ht 172.7 cm; Wt 123.8 kg
[~2020-12-29] MED LIST changes: +NARCAN4 MG NARES; +PERCOCET 10-321 EAC1 PO; +PERCOCET 10-321 EACH PO
[2020-12-29 09:17] VITALS: BP 162/82
--- NOTE | 2020-12-29 09:26 | NUR ---
Pain Clinic Assessment: 1. History of Osteoarthritis: GENERALIZED History of Rheumatoid Arthritis: NONE 2. Height: 5 ft. 8 in. 172.7 cm. Weight: 273.0 lb. oz. 123.832 kg. Patient's BMI: 41.5 3. Vital Signs: BP: 162/82 Pulse: 65 Resp: 16 Temp: 02 Sat: 99 ECG Mon: 4. Pain Intensity: 9 5. Fall Risk: Dizziness: N Needs help standing or walking: N Fallen in the last 3 months: N Fall risk comments: \ 6. Patient on Blood Thinner: None 7. History of Hypertension: N 8. Opioid Therapy greater than 6 weeks: Y Opiate Contract Signed: 09/09/16 9. Risk Assessment Tool Provided: LOW RISK-0 10. Functional Assessment Tool: / 11. Recreational Drug Use: Never Drug Type: Tobacco Use: Never Smoker Tobacco Type: Amount or Packs/day: How Many Years: Alcohol Use: No Frequency: Quant:
== END ==
LOC: PAIN 07:04
PROVIDERS: ATTEND Anesthesiology Pain Medicine
DX: M47.816 Spondylosis without myelopathy or radiculopathy, lumbar region (principal); M47.817 Spondylosis without myelopathy or radiculopathy, lumbosacral region; M19.09 Primary osteoarthritis, other specified site; I10 Essential (primary) hypertension; Z98.84 Bariatric surgery status; Z90.49 Acquired absence of other specified parts of digestive tract